=== PATIENT | male | born 1980 | race Caucasian/White ===

== ENCOUNTER 2017-03-18 14:07 | Inpatient (IN) | payer OTHER ==
[~2017-03-18] VITALS: Ht 177.8 cm; Wt 133.0 kg
[2017-03-19] MEDS ORDERED: HYDR-3580 PO (10:54)
[2017-03-19] MEDS ORDERED: CLON1 PO (16:04)
[2017-03-26] VITALS (10 sets, daily range): BP systolic 102–150; BP diastolic 57–86; PULSE 50–92; RESP 14–20; TEMP 97.6–98.8; O2SAT 95–100
[2017-03-26] MEDS ORDERED: INSULIN HUMAN REGULAR 1,000 UNITS/10 ML VIAL SQ PRN (12:00)
[2017-03-26] MEDS ORDERED: CHLORHEXIDINE GLUCONATE 4% SOLN 120 ML BTL TOPICAL SCH (12:00)
[2017-03-26] MEDS ORDERED: VECURONIUM BROMIDE 10 MG VIAL IV ONE (12:00)
[2017-03-26] MEDS ORDERED: PROPOFOL 200 MG/20 ML AMP IV ONE (12:00)
[2017-03-26] MEDS ORDERED: POVIDONE IODINE 5% (ANTISEPSIS KIT) 4 APPLICATIONS EACH NARE PRN (12:00)
[2017-03-26] MEDS ORDERED: HYDROCORTISONE SOD SUCCINATE 100 MG VIAL IV ONE (12:00)
[2017-03-26] MEDS ORDERED: ceFAZolin 2 GM PREMIX 50 ML IV SCH (12:00)
[2017-03-26] MEDS ORDERED: CHLORHEXIDINE GLUCONATE 2 % 1 PACK (2 CLOTHS) TOPICAL PRN (12:00)
[2017-03-26] MEDS ORDERED: METOPROLOL TARTRATE 25 MG TAB PO PRN (12:00)
[2017-03-26] MEDS ORDERED: SODIUM CHLORID 0.9% 500 ML IV PRN (12:00)
[2017-03-26] MEDS ORDERED: PHENYLEPH/NS 1000 MCG/10 ML SYR IV ONE (12:00)
[2017-03-26] MEDS ORDERED: diphenhydrAMINE HCL 50 MG/ML VIAL IV ONE (12:00)
[2017-03-26] MEDS ORDERED: VANCOMYCIN 1000 MG/NS 250 ML (for <70 kg) IV SCH ×2 (12:00)
[2017-03-26] MEDS ORDERED: LACTATED RINGER'S 1000 ML IV PRN (12:00)
[2017-03-26] MEDS ORDERED: BUPIVACAINE/EPINEPHRINE 0.25% PF 30 ML VIAL ONE (12:08)
[2017-03-26] MEDS ORDERED: GENTAMICIN SULFATE 80 MG/2 ML VIAL ONE ×2 (12:08)
[2017-03-26] MEDS ORDERED: FAMOTIDINE 20 MG/2 ML VIAL ONE (13:57)
[2017-03-26] MEDS ORDERED: MIDAZOLAM HCL 2 MG/2 ML VIAL ONE ×2 (13:57→16:28)
[2017-03-26] MEDS ORDERED: RESP: ALBUTEROL CONC 2.5 MG/0.5 ML NEB ONE (14:51)
[2017-03-26] MEDS ORDERED: HYDROCORTISONE SOD SUCCINATE 100 MG VIAL ONE (15:08)
[2017-03-26] MEDS ORDERED: diphenhydrAMINE HCL 50 MG/ML VIAL ONE (15:08)
[2017-03-26] MEDS ORDERED: PROPOFOL 1000 MG/100 ML INJ 100 ML ONE ×2 (15:47→16:29)
--- NOTE | 2017-03-26 16:11 | RADRPT ---
EXAM DATE/TIME: 03/26/2017 15:32 [facility] COMPARISON: No previous studies available for comparison. INDICATIONS : Evaluate chest post intubation. Respiratory failure and bronchospasm. MEDICAL HISTORY : None. SURGICAL HISTORY : None. ENCOUNTER: Initial ACUITY: 1 day PAIN SCORE: Non-responsive. LOCATION: Bilateral chest FINDINGS: A single AP supine portable view of the chest was obtained and demonstrates an endotracheal tube in p lace with the tip approximately 3 cm above the shana. There is abnormal soft tissue masslike density in both paratracheal regions left greater than right. The aortic knob is not well delineated. There is no distinct perihilar edema and the lung bases are clear with no effusion. The heart size is at th e upper limits of normal. The study is Midinspiratory with crowding of the lung vasculature. CONCLUSION: 1. Intubation. 2. Midinspiratory exam with abnormal soft tissue density in both paratracheal regions which could rep resent adenopathy or other mass. A portion of this could be artifactual secondary to the Midinspirato ry exam. 3. No perihilar edema. The lung bases are clear. The findings were discussed with Dr. Latif by telephone at 1607 hrs. Brian Hamilton MD on March 26, 2017 at 16:04 Board Certified Radiologist. This report was verified electronically.
[2017-03-26] MEDS ORDERED: MISCELLANEOUS NURSING INFORMATION XX SCH (16:15)
[2017-03-26] MEDS ORDERED: CHLORHEXIDINE GLUCONATE 2 % 1 PACK (2 CLOTHS) TOP PRN (16:15)
[2017-03-26] MEDS ORDERED: fentaNYL CITRATE 250 MCG/5 ML AMP ONE ×2 (16:28→16:30)
[2017-03-26] MEDS ORDERED: PHENYLEPHRINE HCL 10 MG/ML VIAL ONE (16:28)
[2017-03-26] MEDS ORDERED: EPINEPHrine HCL (1:10,000) 1 MG/10 ML SYRINGE ONE (16:40)
[2017-03-26] MEDS ORDERED: ATROPINE SULFATE 1 MG/10 ML SYRINGE ONE (16:41)
[2017-03-26] MEDS: PANTOPRAZOLE SODIUM 40 MG VIAL IV SCH (17:00)
[2017-03-26] MEDS ORDERED: IOHEXOL 350 MG/ML 10 ML VIAL (for RAD DIAG) IV ONE (17:08)
--- NOTE | 2017-03-26 17:18 | HHI.HP ---
[facility] Service Critical Care Medicine Primary Care Physician Eddie Ozuna MD Admission Diagnosis Diagnosis: (1) Acute hypoxemic respiratory failure Diagnosis: Principal (2) Bilateral upper lobe infiltrates vs mass Diagnosis: Principal (3) DJD (degenerative joint disease) of cervical spine Diagnosis: Secondary Chief Complaint: Acute respiratory failure Travel History International Travel<30 Days: No Contact w/Intl Traveler <30 Da: No Traveled to Known Affected Are: No History of Present Illness Patient is a 37-year-old male with morbid obesity, tobacco abuse who was brought to the OR for elective ACDF for cervical DJD. Dr. Hanson was the surgeon. Patient was intubated with a GlideScope without difficulty per Dr. Latif. Postintubation, patient had acute wheezing bilaterally with desaturation requiring 100% oxygen. With bronchodilators and ventilatory support, eventually oxygen saturation improved on FiO2 was reduced to 50%. CXR showed bilateral paratracheal mass vs lymphadenopathy vs infiltrate on my review. According to Dr. Latif, intubation was easy with GlideScope, and there was no evidence of aspiration. Planned surgery was cancelled and [facility] was consulted for acute hypoxemic respiratory failure. I evaluated the patient in PACU, he was intubated, heavily sedated and still under NM blockade. I have ordered a STAT CT pulmonary angiogram, to rule out PE and evaluate the mass. Patient will be moved to the ICU after the CT chest. Empiric Zosyn and vancomycin and Levaquin to cover for pneumonia and aspiration. Review of Systems ROS Limitations: Intubated Past Family Social History Allergies: Coded Allergies: Toradol (Verified Allergy, Severe, 03/26/17) PT STATES HE IS NOT ALLERGIC TO TORADOL Past Medical History Cervical DJD tobacco abuse Past Surgical History Unable to obtain Reported Medications Klonopin 1 mg by mouth daily at bedtime Hydrocodone/Tylenol when necessary Active Ordered Medications Reviewed Family History Unable to obtain Social History Tobacco abuse per Dr. Latif Physical Exam Vital Signs Vital Signs Date Time Temp Pulse Resp B/P Pulse Ox O2 Delivery O2 Flow Rate FiO2 03/26/17 16:00 98 60 03/26/17 12:28 98.8 92 20 150/86 95 Physical Exam GENERAL: 37-year-old obese female who is intubated sedated and paralyzed SKIN: Warm and dry. HEAD: Atraumatic. Normocephalic. EYES: Pupils equal and round. ENT: No nasal bleeding or discharge. Mucous membranes pink and moist. ETT 7.5 NECK: Trachea midline. No JVD. CARDIOVASCULAR: Regular rate and rhythm. No murmur appreciated. RESPIRATORY: Air entry equal bilaterally with coarse rhonchi and wheezing anterior anterior right chest and left upper chest GASTROINTESTINAL: Abdomen soft, non-tender, nondistended. Hepatic and splenic margins not palpable. MUSCULOSKELETAL: No obvious deformities. No clubbing. NEUROLOGICAL: Intubated sedated neuromuscularly paralyzed limiting exam Laboratory Pending Imaging CT pulmonary angiogram-Bilateral dense consolidation upper lobes Assessment and Plan Assessment and Plan NEURO: Cervical DJD -Propofol and fentanyl for sedation and ventilator synchrony -Daily sedation medication starting in 24 hours -Planned ACDF cancelled for now RESP: Acute hypoxemic respiratory failure Bilateral upper lobe consolidation -PRVC mode -DuoNeb every 4 hours and when necessary -Broad-spectrum antibiotics to cover for aspiration -May need bronchoscopy CV: Hypotension secondary to sedation -Normal saline IV fluids 2L bolus and 84 ml per hour. -Currently on [id number] to DC keeping map above 65 GI: -NPO. IV Protonix : -Monitor renal function closely. Laura catheter. ID: Bilateral upper lobe infiltrates Community-acquired pneumonia versus aspiration -Blood urine and sputum culture -Empiric treatment with vancomycin, Zosyn and Levaquin HEME: -Monitor CBC, CMP ENDO: -Electrolyte replacement protocol PROPH: -Bilateral lower extremity SCDs. Lovenox 40 mg sq daily. IV Protonix LINES: -Utilize peripheral IVs, central line if needed CC time 55 min Code Status Full Discussed Condition With Beata Latif and Manjeet Guerrero MD Mar 26, 2017 17:18
--- NOTE | 2017-03-26 17:27 | RADRPT ---
EXAM DATE/TIME: 03/26/2017 17:00 [facility] COMPARISON: CHEST SINGLE AP, March 26, 2017, 15:32. INDICATIONS : Possible bronchospasm during intubation. Abnormal chest x-ray with masslike opacities in the medial u pper lobes. IV CONTRAST: 75 cc Omnipaque 350 (iohexol) IV RADIATION DOSE: 28.57 CTDIvol (mGy) MEDICAL HISTORY : Sleep apnea. SURGICAL HISTORY : C-spine surgery ENCOUNTER: Initial ACUITY: 1 day PAIN SCALE: Non-responsive LOCATION: Bilateral chest TECHNIQUE: Volumetric scanning of the chest was performed using a pulmonary embolism protocol MIP images were re constructed. Using automated exposure control and adjustment of the mA and/or kV according to patien t size, radiation dose was kept as low as reasonably achievable to obtain optimal diagnostic quality images. FINDINGS: PULMONARY ARTERIES: No filling defects are seen in the pulmonary arteries through the segmental level. LUNGS: There are areas of dense consolidation in the posterior right upper lobe and left upper lobe as well as areas of more streaky consolidation in the perihilar regions. PLEURAE: There is minimal pleural fluid. MEDIASTINUM: There is good visualization of the great vessels of the middle mediastinum. No evidence of mediastin al or hilar adenopathy/mass. An endotracheal tube is present with the tip above the shana. MUSCULOSKELETAL: Within normal limits for patient age. MISCELLANEOUS: The visualized upper abdominal organs demonstrate no acute abnormality. CONCLUSION: 1. No evidence of pulmonary embolism. 2. Areas of dense consolidation in the upper lobes right greater than left which may be infectious or inflammatory. 3. No evidence of adenopathy or mass. Brian Hamilton MD on March 26, 2017 at 17:19 Board Certified Radiologist. This report was verified electronically.
[2017-03-26] MEDS ORDERED: Vancomycin Consult Pharmacy 1 EA OTHER SCH (17:30)
[2017-03-26] MEDS ORDERED: SODIUM CHLOR 0.9% 1000 ML INJ 1,000 ML IV ONE ×2 (17:30)
[2017-03-26] MEDS ORDERED: LEVOFLOXACIN 750 MG PREMIX INJ 150 ML IV SCH (18:00)
[2017-03-26 19:03] LABS: AUTOMATED NEUTROPHIL # 13.2 TH/MM3 (1.8-7.7); BASOPHIL % 0.2 % (0.0-2.0); EOSINOPHIL % 0.2 % (0.0-4.0); HEMATOCRIT 48.1 % (39.0-51.0); HEMO FLAGS DIFF FINAL; LYMPH % 8.7 % (9.0-44.0); LYMPHOCYTE # 1.3 TH/MM3 (1.0-4.8); MEAN CELL VOLUME 89.2 FL (80.0-100.0); MEAN CORPUSCULAR HEMOGLOBIN 28.5 PG (27.0-34.0); MEAN CORPUSCULAR HGB CONC 31.9 % (32.0-36.0); MONO % 5.2 % (0.0-8.0); NEUT % 85.7 % (16.0-70.0); PLATELET COUNT 344 TH/MM3 (150-450); RED BLOOD COUNT 5.39 MIL/MM3 (4.50-5.90); RED CELL DISTRIBUTION WIDTH 14.2 % (11.6-17.2); WHITE BLOOD COUNT 15.4 TH/MM3 (4.0-11.0)
[2017-03-26 19:27] LABS: ANION GAP 8 MEQ/L (5-15); AST (GOT) 25 U/L (15-37); BICARBONATE 24.1 MEQ/L (21.0-32.0); BLOOD UREA NITROGEN 12 MG/DL (7-18); CHLORIDE 106 MEQ/L (98-107); GLOMERULAR FILTRATION RATE 96 ML/MIN (>89); MAGNESIUM 2.1 MG/DL (1.5-2.5); POTASSIUM 4.7 MEQ/L (3.5-5.1); SODIUM (NA) 138 MEQ/L (136-145)
[2017-03-26 19:31] LABS: ALKALINE PHOSPHATASE 47 U/L (45-117); ALT (GPT) 50 U/L (12-78); TOTAL BILIRUBIN ADULT 0.4 MG/DL (0.2-1.0)
[2017-03-26] MEDS: RESP: ALBUTEROL 2.5 MG/IPRATROPIUM 0.5 MG NEB (SCH) INH ×2 (20:00→23:41)
[2017-03-26] MEDS: PIPERACIL-TAZO 4.5 GM PREMIX 100 ML IV SCH (20:04)
[2017-03-26] MEDS: SODIUM CHLORIDE 0.9% FLUSH 10 ML FLUSH IV FLUSH SCH (21:00)
[2017-03-26] MEDS: PROPOFOL 1000 MG/100 ML INJ 100 ML IV SCH (22:28)
[2017-03-26] MEDS: VANCOMYCIN INJ 1,700 MG in SODIUM CHLORID 0.9% 500 ML INJ 500 ML IV SCH (22:28)
[2017-03-27] VITALS (16 sets, daily range): BP systolic 95–131; BP diastolic 55–76; PULSE 50–91; RESP 14–17; TEMP 97.6–99.3; O2SAT 95–100
[2017-03-27] MEDS: PROPOFOL 1000 MG/100 ML INJ 100 ML IV SCH ×5 (00:34→21:47)
[2017-03-27] MEDS ORDERED: TERBUTALINE INJ 1 MG/ML AMP SQ PRN (01:00)
[2017-03-27] MEDS: PHENYLEPHRINE 40 MG/D5W 496 ML ADMIX IV SCH ×4 (01:44→18:59)
[2017-03-27] MEDS: PIPERACIL-TAZO 4.5 GM PREMIX 100 ML IV SCH ×5 (01:53→17:22)
[2017-03-27] MEDS: RESP: ALBUTEROL 2.5 MG/IPRATROPIUM 0.5 MG NEB (SCH) INH ×6 (03:17→23:55)
[2017-03-27] MEDS: SODIUM CHLOR 0.9% 1000 ML INJ 1,000 ML IV SCH ×2 (03:46→12:02)
--- NOTE | 2017-03-27 05:06 | RADRPT ---
EXAM DATE/TIME: 03/27/2017 03:03 [facility] COMPARISON: CT PULMONARY ANGIOGRAM, March 26, 2017, 17:00. CHEST SINGLE AP, March 26, 2017, 15:32. INDICATIONS : Shortness of breath. MEDICAL HISTORY : Sleep apnea. SURGICAL HISTORY : None. ENCOUNTER: Subsequent ACUITY: 2 days PAIN SCORE: Non-responsive. LOCATION: Bilateral chest FINDINGS: Right greater the left upper lobe consolidation again noted not significantly changed. No large effus ion seen. No evidence of pneumothorax. Heart size stable, within normal limits. Endotracheal tube tip is about 4 cm above the shana. Nasogastric tube courses into the stomach. CONCLUSION: No significant change. Bilateral upper lobe pneumonia again noted. Jaxon Vargas MD on March 27, 2017 at 5:03 Board Certified Radiologist. This report was verified electronically.
[2017-03-27 05:22] LABS: AUTOMATED NEUTROPHIL # 11.2 TH/MM3 (1.8-7.7); BASOPHIL # 0.1 TH/MM3 (0-0.2); BASOPHIL % 0.6 % (0.0-2.0); EOSINOPHIL # 0.2 TH/MM3 (0-0.4); EOSINOPHIL % 1.3 % (0.0-4.0); HEMATOCRIT 45.2 % (39.0-51.0); HEMO FLAGS DIFF FINAL; LYMPH % 15.7 % (9.0-44.0); LYMPHOCYTE # 2.5 TH/MM3 (1.0-4.8); MEAN CELL VOLUME 88.5 FL (80.0-100.0); MEAN CORPUSCULAR HEMOGLOBIN 29.5 PG (27.0-34.0); MEAN CORPUSCULAR HGB CONC 33.3 % (32.0-36.0); MONO % 11.2 % (0.0-8.0); NEUT % 71.2 % (16.0-70.0); PLATELET COUNT 289 TH/MM3 (150-450); RED BLOOD COUNT 5.11 MIL/MM3 (4.50-5.90); RED CELL DISTRIBUTION WIDTH 14.4 % (11.6-17.2); WHITE BLOOD COUNT 15.8 TH/MM3 (4.0-11.0)
[2017-03-27 05:43] LABS: ALT (GPT) 46 U/L (12-78); ANION GAP 6 MEQ/L (5-15); AST (GOT) 36 U/L (15-37); BICARBONATE 27.2 MEQ/L (21.0-32.0); BLOOD UREA NITROGEN 9 MG/DL (7-18); CHLORIDE 108 MEQ/L (98-107); GLOMERULAR FILTRATION RATE 72 ML/MIN (>89); MAGNESIUM 2.1 MG/DL (1.5-2.5); POTASSIUM 4.5 MEQ/L (3.5-5.1); SODIUM (NA) 141 MEQ/L (136-145)
[2017-03-27 05:45] LABS: ALKALINE PHOSPHATASE 41 U/L (45-117); TOTAL BILIRUBIN ADULT 0.4 MG/DL (0.2-1.0)
[2017-03-27] MEDS: VANCOMYCIN INJ 1,700 MG in SODIUM CHLORID 0.9% 500 ML INJ 500 ML IV SCH ×2 (05:48→12:02)
--- NOTE | 2017-03-27 07:06 | PD.ORT.PN ---
Subjective Subjective Remarks pt intubated but alert and oriented critical care physician, nurse and by bedside Objective Vitals Vital Signs Date Time Temp Pulse Resp B/P Pulse Ox O2 Delivery O2 Flow Rate FiO2 03/27/17 04:00 98.3 75 17 131/63 100 03/27/17 04:00 35 03/27/17 03:18 100 35 03/27/17 00:00 40 03/27/17 00:00 97.6 50 14 104/55 100 03/26/17 23:45 100 40 03/26/17 23:00 50 03/26/17 20:24 100 45 03/26/17 20:00 45 03/26/17 20:00 58 16 109/63 100 03/26/17 19:00 45 Mechanical Ventilator 03/26/17 19:00 97.8 58 14 102/57 100 03/26/17 18:00 97.6 65 14 120/70 100 03/26/17 17:31 99 50 03/26/17 17:22 100 100 03/26/17 17:00 97.4 66 14 121/58 100 Mechanical Ventilator 80 03/26/17 16:45 73 14 110/55 100 Mechanical Ventilator 80 03/26/17 16:30 83 14 100/54 100 Mechanical Ventilator 80 03/26/17 16:15 83 14 107/59 100 Mechanical Ventilator 100 03/26/17 16:00 97.4 86 14 91/54 100 Mechanical Ventilator 100 03/26/17 16:00 98 60 03/26/17 12:28 98.8 92 20 150/86 95 I/O 03/26/17 03/26/17 03/26/17 03/27/17 03/27/17 03/27/17 07:00 15:00 23:00 07:00 15:00 23:00 Intake Total 3009 ml 1674 ml Output Total 1450 ml 1875 ml Balance 1559 ml -201 ml Intake IV Total 1809 ml 1674 ml Other 1200 ml Output Urine Total 1450 ml 1875 ml # Bowel Movements 0 0 Result Diagram: 03/27/17 0451 03/27/17 0451 Imaging Last 24 hours Impressions Chest X-Ray 03/27/17 0000 Signed Impressions: Service Date/Time: Monday, March 27, 2017 03:03 - CONCLUSION: No significant change. Bilateral upper lobe pneumonia again noted. Jaxon Vargas MD Objective Remarks pt intubated alert and oriented Assessment & Plan Assessment and Plan at time of intubation for elective ACDF yesterday, patient developed resp distress and surgery was aborted chest x-ray was concerning for mass, CTA showed no evidence of PE or mass, inflammatory vs infectious cause critical care physician going to perform bronchoscopy at 10 am continue pulm/medical care Nancy Adler Mar 27, 2017 07:06
[2017-03-27] MEDS ORDERED: ROCURONIUM INJ 50 MG/5 ML VIAL IV ONE (07:15)
[2017-03-27] MEDS ORDERED: MIDAZOLAM HCL 5 MG/5 ML VIAL IV PUSH ONE (07:15)
--- NOTE | 2017-03-27 07:16 | HHI.CCPN ---
Subjective Remarks/Hospital Course Patient is a 37-year-old male with morbid obesity, tobacco abuse who was brought to the OR for elective ACDF for cervical DJD. Dr. Hanson was the surgeon. Patient was intubated with a GlideScope without difficulty per Dr. Latif. Postintubation, patient had acute wheezing bilaterally with desaturation requiring 100% oxygen. With bronchodilators and ventilatory support, eventually oxygen saturation improved on FiO2 was reduced to 50%. CXR showed bilateral paratracheal mass vs lymphadenopathy vs infiltrate on my review. According to Dr. Latif, intubation was easy with GlideScope, and there was no evidence of aspiration. Planned surgery was cancelled and [facility] was consulted for acute hypoxemic respiratory failure. I evaluated the patient in PACU, he was intubated, heavily sedated and still under NM blockade. I have ordered a STAT CT pulmonary angiogram, to rule out PE and evaluate the mass. Patient will be moved to the ICU after the CT chest. Empiric Zosyn and vancomycin and Levaquin to cover for pneumonia and aspiration. SUBJ: 03/27/18: Remains intubated sedated. Wakes up easily. CXR persistent bilateral infiltrate. Sputum pending Objective Vital Signs Date Time Temp Pulse Resp B/P Pulse Ox O2 Delivery O2 Flow Rate FiO2 03/27/17 04:00 98.3 75 17 131/63 100 03/27/17 04:00 35 03/26/17 19:00 Mechanical Ventilator Intake and Output 03/26/17 03/26/17 03/27/17 08:00 16:00 00:00 Intake Total 1200 ml 1809 ml Output Total 300 ml 1150 ml Balance 900 ml 659 ml Result Diagram: 03/27/17 0451 03/27/[address] pulmonary angiogram-Bilateral dense consolidation upper lobes Objective Remarks GENERAL: 37-year-old obese female who is intubated sedated SKIN: Warm and dry. HEAD: Atraumatic. Normocephalic. EYES: Pupils equal and round. ENT: No nasal bleeding or discharge. Mucous membranes pink and moist. ETT 7.5 NECK: Trachea midline. No JVD. CARDIOVASCULAR: Regular rate and rhythm. No murmur appreciated. RESPIRATORY: Air entry equal bilaterally with coarse rhonchi and wheezing anterior anterior right chest and left upper chest GASTROINTESTINAL: Abdomen soft, non-tender, nondistended. Hepatic and splenic margins not palpable. MUSCULOSKELETAL: No obvious deformities. No clubbing. NEUROLOGICAL: Intubated sedated. Wakes up easily follows commands. No FND Urinary Catheter: Yes Assessment to: Continue A/P Assessment and Plan NEURO: Cervical DJD -Propofol and fentanyl for sedation and ventilator synchrony -Daily sedation medication starting in 24 hours -ACDF cancelled for now per Dr. Hanson RESP: Acute hypoxemic respiratory failure Bilateral upper lobe consolidation -PRVC mode -DuoNeb every 4 hours and when necessary -Broad-spectrum antibiotics to cover for aspiration -Bronchoscopy today due to persistent bilateral infiltrates -Possible extubation after bronch CV: Hypotension secondary to sedation -Normal saline IV fluids 2L bolus and 84 ml per hour. -Currently on [id number] to DC keeping map above 65 GI: -NPO. IV Protonix : -Monitor renal function closely. Laura catheter. ID: Bilateral upper lobe infiltrates Community-acquired pneumonia versus aspiration -Blood urine and sputum culture -Empiric treatment with vancomycin, Zosyn and Levaquin HEME: -Monitor CBC, CMP ENDO: -Electrolyte replacement protocol PROPH: -Bilateral lower extremity SCDs. Lovenox 40 mg sq daily. IV Protonix LINES: -Utilize peripheral IVs, central line if needed CC time 35 min Manjeet Coates MD Mar 27, 2017 07:16
[2017-03-27] MEDS: SODIUM CHLORIDE 0.9% FLUSH 10 ML FLUSH IV FLUSH SCH ×2 (07:43→21:00)
[2017-03-27] MEDS: PANTOPRAZOLE SODIUM 40 MG VIAL IV SCH (08:00)
[2017-03-27] MEDS: LEVOFLOXACIN 750 MG PREMIX INJ 150 ML IV SCH (08:00)
[2017-03-27] MEDS: fentaNYL DRIP 250 ML IV SCH (09:19)
[2017-03-27] MEDS ORDERED: methylPREDNISolone SOD SUCC 125 MG/2 ML VIAL ONE (10:35)
[2017-03-27] MEDS ORDERED: diphenhydrAMINE HCL 50 MG/ML VIAL ONE (10:37)
[2017-03-27] MEDS: RESP: ALBUTEROL 2.5 MG/IPRATROPIUM 0.5 MG NEB (PRN) INH (11:09)
--- NOTE | 2017-03-27 11:21 | PD.PROCEDR ---
Procedure Note Procedure Procedure Procedure: Diagnostic Fiberoptic Bronchoscopy Diagnosis/Indication: Bilateral upper lobe infiltrates, rule out mass obstruction Consent: Written Consent was obtained Anesthesia: Continuous Propofol IV and Fentanyl IV, Rocuronium IV 50mg x 1 and Versed 5 mg IV x1 Description of the Procedure: The patient was sedated and mechanically ventilated. The patient was placed on 100% FIO2 and PRVC of ventilation. The fiberoptic bronchoscopy was inserted via 7.5 cuffed Shiley tracheostomy. The trachea, right and left mainstem bronchi, and sub-segmental bronchi were evaluated. The endobronchial anatomy was normal. Thin secretions bilateral UL, other subsegmental bronchi were all essentially clear. BAL samples: Left upper lobe, right upper lobe. A chest x-ray has been ordered. Just after the completion of bronchoscopy patient developed severe bronchospasm , with desaturation to 85%. On PRVC mode patient did not have adequate ventilation and was changed to PCAC and was given [id number] DuoNeb breathing treatments with improvement in bronchospasm. He was also given 125 mg of IV Solu Medrol stat followed by 50 mg of Benadryl. I discussed with anesthesiologist Dr. Latif. He describes bronchospasm and hypoxia following his initial induction on 03/26/17 after receiving IV rocuronium. He describes no problem with a dose of Vecuronium later for ventilator synchrony, without any show bronchospasm. I have entered Rocuronium as an allergy. I personally performed the procedure. Manjeet Coates MD Mar 27, 2017 11:21
[2017-03-27] MEDS: diphenhydrAMINE HCL 50 MG/ML VIAL IV PUSH SCH ×2 (11:45→17:22)
--- NOTE | 2017-03-27 12:31 | RADRPT ---
EXAM DATE/TIME: 03/27/2017 11:25 [facility] COMPARISON: CHEST SINGLE AP, March 27, 2017, 3:03. INDICATIONS : Post bronchoscopy. MEDICAL HISTORY : Sleep apnea. SURGICAL HISTORY : C-spine surgery ENCOUNTER: Subsequent ACUITY: 3 days PAIN SCORE: 0/10 LOCATION: Bilateral chest FINDINGS: ET tube and nasogastric tube are in good position. Patchy airspace disease is present in both lungs. Heart is minimally enlarged, pulmonary vascularity is normal. CONCLUSION: 1. Support apparatus in good position. 2. Patchy airspace disease in both lungs, stable in the interval. Chinmay Carlton MD FACR on March 27, 2017 at 12:18 Board Certified Radiologist. This report was verified electronically.
[2017-03-27] MEDS ORDERED: PHARMACY ORDERED LAB ONE ×2 (12:45→23:45)
[2017-03-27] MEDS: methylPREDNISolone SOD SUCC 40 MG/1 ML VIAL IV SCH ×2 (13:46→21:18)
[2017-03-27] MEDS: ENOXAPARIN SODIUM 40 MG/0.4 ML SYRINGE SQ SCH (13:46)
[2017-03-27 17:17] LABS: BRONCHOALVEOLAR LAVAGE RBC 43 /MM3; BRONCHOALVEOLAR LAVAGE WBC 135 /MM3; BRONCHOAVEOLAR EOSINOPHILS 2 %; BRONCHOAVEOLAR HISTIOCYTES 2 %; BRONCHOAVEOLAR LYMPHOCYTES 7 %; BRONCHOAVEOLAR NEUTROPHILS 88 %; LAVAGE TOTAL WBC COUNT 0.7 MILLION (4.7-7.1)
[2017-03-27 19:36] LABS: BRONCHOALVEOLAR LAVAGE RBC 21 /MM3; BRONCHOALVEOLAR LAVAGE WBC 9 /MM3; BRONCHOAVEOLAR LYMPHOCYTES 8 %; BRONCHOAVEOLAR NEUTROPHILS 11 %
[2017-03-28] VITALS (12 sets, daily range): BP systolic 94–141; BP diastolic 55–76; PULSE 52–136; RESP 14–31; TEMP 97.7–98.9; O2SAT 93–98
[2017-03-28] MEDS ORDERED: VANCOMYCIN INJ 2,000 MG in SODIUM CHLORID 0.9% 500 ML INJ 500 ML IV SCH ×2
[2017-03-28] MEDS: CLOTRIMAZOLE 1% CREAM 15 GM TOPICAL SCH ×3 (00:16→22:06)
[2017-03-28] MEDS: diphenhydrAMINE HCL 50 MG/ML VIAL IV PUSH SCH ×2 (00:20→05:18)
[2017-03-28] MEDS: fentaNYL DRIP 250 ML IV SCH (01:03)
[2017-03-28] MEDS: PROPOFOL 1000 MG/100 ML INJ 100 ML IV SCH ×3 (01:03→06:57)
[2017-03-28] MEDS: PIPERACIL-TAZO 4.5 GM PREMIX 100 ML IV SCH ×4 (01:47→19:00)
[2017-03-28] MEDS: SODIUM CHLOR 0.9% 1000 ML INJ 1,000 ML IV SCH (02:37)
[2017-03-28] MEDS: RESP: ALBUTEROL 2.5 MG/IPRATROPIUM 0.5 MG NEB (SCH) INH ×4 (03:58→21:50)
[2017-03-28] MEDS: PHENYLEPHRINE 40 MG/D5W 496 ML ADMIX IV SCH ×2 (04:06)
[2017-03-28] MEDS: methylPREDNISolone SOD SUCC 40 MG/1 ML VIAL IV SCH ×3 (05:17→22:06)
[2017-03-28] MEDS: LEVOFLOXACIN 750 MG PREMIX INJ 150 ML IV SCH (05:18)
[2017-03-28] MEDS ORDERED: FUROSEMIDE 20 MG/2 ML VIAL IV PUSH SCH (06:00)
--- NOTE | 2017-03-28 07:06 | RADRPT ---
EXAM DATE/TIME: 03/28/2017 06:28 [facility] COMPARISON: No previous studies available for comparison. INDICATIONS : Shortness of breath. MEDICAL HISTORY : Sleep apnea SURGICAL HISTORY : None. ENCOUNTER: Subsequent ACUITY: 4 - 6 days PAIN SCORE: 0/10 LOCATION: Bilateral chest FINDINGS: Mild bilateral perihilar and basilar infiltrates are again noted, slightly improved. No large effusio n. No pneumothorax. Endotracheal tube tip is about 5 cm above the shana. Nasogastric tube courses into the stomach. CONCLUSION: Slightly improved bilateral airspace opacities. Jaxon Vargas MD on March 28, 2017 at 7:04 Board Certified Radiologist. This report was verified electronically.
--- NOTE | 2017-03-28 07:08 | PD.ORT.PN ---
Subjective Subjective Remarks pt intubated and sleeping and nurse in room Objective Vitals Vital Signs Date Time Temp Pulse Resp B/P Pulse Ox O2 Delivery O2 Flow Rate FiO2 03/28/17 06:10 40 03/28/17 04:00 97.8 52 14 129/76 98 03/28/17 04:00 40 03/28/17 03:58 98 40 03/28/17 00:00 40 03/28/17 00:00 97.7 100 14 94/55 94 03/27/17 23:56 95 40 03/27/17 23:00 56 03/27/17 20:20 98 40 03/27/17 20:00 40 03/27/17 20:00 98.3 58 14 113/65 98 03/27/17 19:00 98 Mechanical Ventilator 40 03/27/17 16:13 98 40 03/27/17 16:00 45 03/27/17 16:00 98.6 71 14 121/76 99 03/27/17 15:00 69 03/27/17 12:00 98.6 62 14 95/56 98 03/27/17 12:00 45 03/27/17 11:24 100 50 03/27/17 10:25 100 100 03/27/17 08:37 100 35 03/27/17 08:00 99.3 91 14 124/59 100 03/27/17 08:00 45 I/O 03/27/17 03/27/17 03/27/17 03/28/17 03/28/17 03/28/17 07:00 15:00 23:00 07:00 15:00 23:00 Intake Total 1674 ml 1725 ml 2107 ml 1642 ml Output Total 1875 ml 1300 ml 2400 ml 875 ml Balance -201 ml 425 ml -293 ml 767 ml Intake IV Total 1674 ml 1725 ml 2107 ml 1642 ml Output Urine Total 1875 ml 1300 ml 2400 ml 875 ml # Bowel Movements 0 0 0 0 Result Diagram: 03/27/17 0451 03/27/17 0451 Imaging Last 24 hours Impressions Chest X-Ray 03/27/17 0000 Signed Impressions: Service Date/Time: Monday, March 27, 2017 03:03 - CONCLUSION: No significant change. Bilateral upper lobe pneumonia again noted. Jaxon Vargas MD Objective Remarks pt intubated sleeping comfortably Assessment & Plan Assessment and Plan spoke to Dr. Coates, critical care physician, and he plans on extubating patient this AM patient did have resp. distress yesterday after bronchoscope and it was determined patient has allergy to rocunorium continue pulm/medical care await bronchoscope cultures Nancy Adler Mar 28, 2017 07:08
--- NOTE | 2017-03-28 08:18 | HHI.CCPN ---
Subjective Remarks/Hospital Course Patient is a 37-year-old male with morbid obesity, tobacco abuse who was brought to the OR for elective ACDF for cervical DJD. Dr. Hanson was the surgeon. Patient was intubated with a GlideScope without difficulty per Dr. Latif. Postintubation, patient had acute wheezing bilaterally with desaturation requiring 100% oxygen. With bronchodilators and ventilatory support, eventually oxygen saturation improved on FiO2 was reduced to 50%. CXR showed bilateral paratracheal mass vs lymphadenopathy vs infiltrate on my review. According to Dr. Latif, intubation was easy with GlideScope, and there was no evidence of aspiration. Planned surgery was cancelled and [facility] was consulted for acute hypoxemic respiratory failure. I evaluated the patient in PACU, he was intubated, heavily sedated and still under NM blockade. I have ordered a STAT CT pulmonary angiogram, to rule out PE and evaluate the mass. Patient will be moved to the ICU after the CT chest. Empiric Zosyn and vancomycin and Levaquin to cover for pneumonia and aspiration. SUBJ: 03/27/18: Remains intubated sedated. Wakes up easily. CXR persistent bilateral infiltrate. Sputum pending 03/28/17: Bronchoscopy yesterday was essentially unremarkable, but just after the completion of bronchoscopy patient developed severe bronchospasm, with desaturation to 85%. Given [id number] DuoNeb breathing treatments with improvement in bronchospasm. Also received 125 mg of IV Solu Medrol, scheduled Solu Medrol 60 mg every 8 hours, 50 mg of Benadryl IV q6 . I discussed with anesthesiologist Dr. Latif. He describes bronchospasm and hypoxia following his initial induction on 03/26/17 after receiving IV rocuronium. He describes no problem with a dose of Vecuronium later for ventilator synchrony, without any show bronchospasm. I have entered Rocuronium as an allergy. Patient tolerating CPAP trials well today. Good cuff leak. Plan for extubation Objective Vital Signs Date Time Temp Pulse Resp B/P Pulse Ox O2 Delivery O2 Flow Rate FiO2 03/28/17 06:10 40 03/28/17 04:00 97.8 52 14 129/76 98 03/27/17 19:00 Mechanical Ventilator Intake and Output 03/27/17 03/27/17 03/28/17 08:00 16:00 00:00 Intake Total 1674 ml 1725 ml 2107 ml Output Total 1875 ml 1300 ml 2400 ml Balance -201 ml 425 ml -293 ml Result Diagram: 03/27/17 0451 03/27/17 0451 Other Results Microbiology Date/Time Procedure Status Source Growth 03/26/17 18:15 Legionella Antigen - Final Complete Urine Catheterized Urine PRESUMPTIVE NEGATIVE FOR LEGIONELLA P... 03/26/17 18:15 Streptococcus pneumoniae Antigen (M - Final Complete Urine Catheterized Urine PRESUMPTIVE NEGATIVE FOR STREPTOCOCCU... Imaging CT pulmonary angiogram-Bilateral dense consolidation upper lobes Objective Remarks GENERAL: 37-year-old obese female who is intubated sedated. Wakes up recently. Follows Commands SKIN: Warm and dry. HEAD: Atraumatic. Normocephalic. EYES: Pupils equal and round. ENT: No nasal bleeding or discharge. Mucous membranes pink and moist. ETT 7.5 NECK: Trachea midline. No JVD. CARDIOVASCULAR: Regular rate and rhythm. No murmur appreciated. RESPIRATORY: Air entry equal bilaterally, no wheezes or crackles. GASTROINTESTINAL: Abdomen soft, non-tender, nondistended. Hepatic and splenic margins not palpable. MUSCULOSKELETAL: No obvious deformities. No clubbing. NEUROLOGICAL: Intubated sedated. Wakes up easily follows commands. No FND A/P Assessment and Plan NEURO: Cervical DJD -Propofol and fentanyl for sedation and ventilator synchrony -Hold sedation for possible extubation -ACDF cancelled for now per Dr. Hanson RESP: Acute hypoxemic respiratory failure Bilateral upper lobe consolidation Bronchospasm secondary to rocuronium -PRVC mode -DuoNeb every 4 hours and when necessary -Broad-spectrum antibiotics to cover for aspiration -Bronchoscopy 03/27 unremarkable -Developed bronchospasm post procedure probably induced by Rocuronium -Continue IV Solu-Medrol, IV Benadryl CV: Hypotension secondary to sedation -Discontinued IV NS. IV lasix 20 mg x1 GI: -NPO. IV Protonix : -Monitor renal function closely. Laura catheter. ID: Bilateral upper lobe infiltrates Community-acquired pneumonia versus aspiration, GNR in sputum -Blood urine and sputum culture. GNR in sputum -Empiric treatment with Zosyn and Levaquin. DC Vanc HEME: -Monitor CBC, CMP ENDO: -Electrolyte replacement protocol PROPH: -Bilateral lower extremity SCDs. Lovenox 40 mg sq daily. IV Protonix LINES: -Utilize peripheral IVs CC time 35 min Manjeet Coates MD Mar 28, 2017 08:18
[2017-03-28] MEDS ORDERED: LORazepam 2 MG/ML VIAL ONE (09:27)
[2017-03-28] MEDS ORDERED: fentaNYL CITRATE 250 MCG/5 ML AMP IV PUSH ONE (09:45)
[2017-03-28] MEDS ORDERED: clonazePAM 1 MG TAB PO ONE (09:45)
[2017-03-28] MEDS: SODIUM CHLORIDE 0.9% FLUSH 10 ML FLUSH IV FLUSH SCH ×2 (09:48→22:05)
[2017-03-28] MEDS: PANTOPRAZOLE SODIUM 40 MG VIAL IV SCH (09:48)
[2017-03-28] MEDS ORDERED: LORazepam 2 MG/ML VIAL IV ONE (12:15)
[2017-03-28] MEDS ORDERED: METOPROLOL TARTRATE 5 MG/5 ML VIAL IV PUSH PRN (13:15)
[2017-03-28] MEDS ORDERED: LORazepam 2 MG/ML VIAL IV PUSH ONE (13:15)
[2017-03-28] MEDS ORDERED: METOPROLOL TARTRATE 5 MG/5 ML VIAL IV PUSH ONE (13:45)
[2017-03-28] MEDS: ACETAMINOPHEN/HYDROcodone 325 MG/7.5 MG TAB PO PRN ×3 (15:30→22:06)
[2017-03-28] MEDS: ENOXAPARIN SODIUM 40 MG/0.4 ML SYRINGE SQ SCH (15:30)
--- NOTE | 2017-03-28 18:46 | EKG ---
Date Performed: 03/28/2017 Time Performed: 14:05:04 PTAGE: 37 years EKG: Sinus tachycardia. Extensive T wave changes are nonspecific Borderline ECG NO PREVIOUS TRACING Compared to the previous tracing T wave changes present DOCTOR: Poncho Mead Interpretating Date/Time 03/28/2017 18:46:11
[2017-03-28] MEDS: clonazePAM 1 MG TAB PO SCH (22:05)
[2017-03-29] VITALS (9 sets, daily range): BP systolic 111–150; BP diastolic 58–76; PULSE 96–118; RESP 17–26; TEMP 97.6–99; O2SAT 92–99
[2017-03-29] MEDS: PIPERACIL-TAZO 4.5 GM PREMIX 100 ML IV SCH ×4 (00:51→18:37)
[2017-03-29] MEDS: ACETAMINOPHEN/HYDROcodone 325 MG/7.5 MG TAB PO PRN ×6 (00:52→20:48)
[2017-03-29] MEDS: RESP: ALBUTEROL 2.5 MG/IPRATROPIUM 0.5 MG NEB (SCH) INH ×4 (02:02→16:55)
[2017-03-29 04:50] LABS: ANION GAP 7 MEQ/L (5-15); AST (GOT) 37 U/L (15-37); BICARBONATE 28.2 MEQ/L (21.0-32.0); BLOOD UREA NITROGEN 17 MG/DL (7-18); CHLORIDE 106 MEQ/L (98-107); GLOMERULAR FILTRATION RATE 67 ML/MIN (>89); POTASSIUM 3.6 MEQ/L (3.5-5.1); SODIUM (NA) 141 MEQ/L (136-145)
[2017-03-29 04:53] LABS: ALKALINE PHOSPHATASE 63 U/L (45-117); ALT (GPT) 64 U/L (12-78); TOTAL BILIRUBIN ADULT 0.2 MG/DL (0.2-1.0)
[2017-03-29] MEDS: LEVOFLOXACIN 750 MG PREMIX INJ 150 ML IV SCH (05:55)
[2017-03-29] MEDS: methylPREDNISolone SOD SUCC 40 MG/1 ML VIAL IV SCH ×3 (05:55→20:48)
--- NOTE | 2017-03-29 06:03 | RADRPT ---
EXAM DATE/TIME: 03/29/2017 04:35 [facility] COMPARISON: CHEST SINGLE AP, March 28, 2017, 6:28. INDICATIONS : Shortness of breath, possible pulmonary disease. MEDICAL HISTORY : Sleep Apnea SURGICAL HISTORY : None. ENCOUNTER: Subsequent ACUITY: 4 - 6 days PAIN SCORE: 0/10 LOCATION: Bilateral chest FINDINGS: Very mild, patchy basilar predominant air space opacities are again noted, left slightly worse than r ight. No pleural effusion. No pneumothorax. Heart size stable, within normal limits. Patient has been extubated. Nasogastric tube also out. CONCLUSION: Endotracheal tube and nasogastric tube out. Very mild patchy air space opacities persist without sign ificant change. Jaxon Vargas MD on March 29, 2017 at 6:00 Board Certified Radiologist. This report was verified electronically.
--- NOTE | 2017-03-29 08:32 | PD.ORT.PN ---
Subjective Subjective Remarks pt was extubated yesterday complaining of neck pain, headache, sore throat in room Dr. Chung explained at length to patient and his of the respiratory disorder related medication reaction during anaesthesia Objective Vitals Vital Signs Date Time Temp Pulse Resp B/P Pulse Ox O2 Delivery O2 Flow Rate FiO2 03/29/17 04:00 97.6 106 26 143/72 93 03/29/17 00:00 98.2 106 17 126/62 97 03/28/17 23:00 107 03/28/17 21:50 93 21 03/28/17 20:00 98.9 116 26 141/64 93 03/28/17 19:00 95 Room Air 03/28/17 16:30 30 03/28/17 16:00 98.7 128 30 123/60 95 03/28/17 15:00 126 03/28/17 12:00 98.8 136 31 119/59 93 03/28/17 08:48 96 Nasal Cannula 3 I/O 03/28/17 03/28/17 03/28/17 03/29/17 03/29/17 03/29/17 07:00 15:00 23:00 07:00 15:00 23:00 Intake Total 1642 ml 955 ml 628 ml 724 ml Output Total 875 ml 2000 ml 550 ml 475 ml Balance 767 ml -1045 ml 78 ml 249 ml Intake Oral 400 ml 500 ml 480 ml IV Total 1642 ml 555 ml 128 ml 244 ml Output Urine Total 875 ml 2000 ml 550 ml 475 ml # Bowel Movements 0 0 1 2 Result Diagram: 03/27/17 0451 03/29/17 0402 Imaging Last 24 hours Impressions Chest X-Ray 03/27/17 0000 Signed Impressions: Service Date/Time: Monday, March 27, 2017 03:03 - CONCLUSION: No significant change. Bilateral upper lobe pneumonia again noted. Jaxon Vargas MD Objective Remarks pt extubated motor is +5/5 except left wrist dorsiflexion +4.5/5 Assessment & Plan Assessment and Plan transfer to [facility] patient did have resp. distress after bronchoscope and it was determined patient has allergy to rocunorium continue pulm/medical care await bronchoscope cultures- no growth @ 24 hrs Nancy Adler Mar 29, 2017 08:31
[2017-03-29] MEDS: CLOTRIMAZOLE 1% CREAM 15 GM TOPICAL SCH (08:51)
[2017-03-29] MEDS: clonazePAM 1 MG TAB PO SCH ×2 (08:51→20:48)
[2017-03-29] MEDS: SODIUM CHLORIDE 0.9% FLUSH 10 ML FLUSH IV FLUSH SCH (08:52)
--- NOTE | 2017-03-29 09:05 | HHI.PR ---
Subjective Remarks Swamper Notes: Patient is a 37-year-old male with morbid obesity, tobacco abuse who was brought to the OR for elective ACDF for cervical DJD. Dr. Hanson was the surgeon. Patient was intubated with a GlideScope without difficulty per Dr. Latif. Postintubation, patient had acute wheezing bilaterally with desaturation requiring 100% oxygen. With bronchodilators and ventilatory support, eventually oxygen saturation improved on FiO2 was reduced to 50%. CXR showed bilateral paratracheal mass vs lymphadenopathy vs infiltrate on my review. According to Dr. Latif, intubation was easy with GlideScope, and there was no evidence of aspiration. Planned surgery was cancelled and [facility] was consulted for acute hypoxemic respiratory failure. I evaluated the patient in PACU, he was intubated, heavily sedated and still under NM blockade. I have ordered a STAT CT pulmonary angiogram, to rule out PE and evaluate the mass. Patient will be moved to the ICU after the CT chest. Empiric Zosyn and vancomycin and Levaquin to cover for pneumonia and aspiration. SUBJ: 03/27/18: Remains intubated sedated. Wakes up easily. CXR persistent bilateral infiltrate. Sputum pending 03/28/17: Bronchoscopy yesterday was essentially unremarkable, but just after the completion of bronchoscopy patient developed severe bronchospasm, with desaturation to 85%. Given [id number] DuoNeb breathing treatments with improvement in bronchospasm. Also received 125 mg of IV Solu Medrol, scheduled Solu Medrol 60 mg every 8 hours, 50 mg of Benadryl IV q6 . I discussed with anesthesiologist Dr. Latif. He describes bronchospasm and hypoxia following his initial induction on 03/26/17 after receiving IV rocuronium. He describes no problem with a dose of Vecuronium later for ventilator synchrony, without any show bronchospasm. I have entered Rocuronium as an allergy. Patient tolerating CPAP trials well today. Good cuff leak. Plan for extubation Hospitalist Notes: 03/29: Seen in his bedroom in the presence of nurse Miss Cervantes also his present he has Allergy to Rocuronium at this time stable no Nausea, vomit or diarrhea, had Polysomnography and was supposed to be on CPAP, RENATE, and Morbid Obesity, Obesity hypoventilation syndrome. Objective Vital Signs Date Time Temp Pulse Resp B/P Pulse Ox O2 Delivery O2 Flow Rate FiO2 4/30/17 04:00 97.6 106 26 143/72 93 03/29/17 00:00 98.2 106 17 126/62 97 03/28/17 23:00 107 03/28/17 21:50 93 21 03/28/17 20:00 98.9 116 26 141/64 93 03/28/17 19:00 95 Room Air 03/28/17 16:30 30 03/28/17 16:00 98.7 128 30 123/60 95 03/28/17 15:00 126 03/28/17 12:00 98.8 136 31 119/59 93 I/O 03/28/17 03/28/17 03/28/17 03/29/17 03/29/17 03/29/17 07:00 15:00 23:00 07:00 15:00 23:00 Intake Total 1642 ml 955 ml 628 ml 724 ml Output Total 875 ml 2000 ml 550 ml 475 ml Balance 767 ml -1045 ml 78 ml 249 ml Intake Oral 400 ml 500 ml 480 ml IV Total 1642 ml 555 ml 128 ml 244 ml Output Urine Total 875 ml 2000 ml 550 ml 475 ml # Bowel Movements 0 0 1 2 Result Diagram: 03/27/17 0451 03/29/17 0402 Imaging Last Impressions Chest X-Ray 03/29/17 0600 Signed Impressions: Service Date/Time: Wednesday, March 29, 2017 04:35 - CONCLUSION: Endotracheal tube and nasogastric tube out. Very mild patchy air space opacities persist without significant change. Jaxon Vargas MD CT Angiography 03/26/17 0000 Signed Impressions: Service Date/Time: February 17:00 - CONCLUSION: 1. No evidence of pulmonary embolism. 2. Areas of dense consolidation in the upper lobes right greater than left which may be infectious or inflammatory. 3. No evidence of adenopathy or mass. Brian Hamilton MD Procedures Bronchoscopy Endotracheal Intubation cancelled Decompression C5-6 and C6-C7 Other Results Laboratory Tests Test 03/26/17 03/27/17 03/27/17 03/27/17 17:50 04:51 11:00 23:50 Nasal Screen MRSA (PCR) MRSA NOT DETECTED White Blood Count 15.8 TH/MM3 Red Blood Count 5.11 MIL/MM3 Hemoglobin 15.1 GM/DL Hematocrit 45.2 % Mean Corpuscular Volume 88.5 FL Mean Corpuscular Hemoglobin 29.5 PG Mean Corpuscular Hemoglobin 33.3 % Concent Red Cell Distribution Width 14.4 % Platelet Count 289 TH/MM3 Mean Platelet Volume 8.0 FL Neutrophils (%) (Auto) 71.2 % Lymphocytes (%) (Auto) 15.7 % Monocytes (%) (Auto) 11.2 % Eosinophils (%) (Auto) 1.3 % Basophils (%) (Auto) 0.6 % Neutrophils # (Auto) 11.2 TH/MM3 Lymphocytes # (Auto) 2.5 TH/MM3 Monocytes # (Auto) 1.8 TH/MM3 Eosinophils # (Auto) 0.2 TH/MM3 Basophils # (Auto) 0.1 TH/MM3 CBC Comment DIFF FINAL Differential Comment Bronchoalveolar Lavage WBC 9 /MM3 Bronchoalveolar Lavage RBC 21 /MM3 Bronchoalveolar Lavage 11 % Neutrophils Bronchoalveolar Lavage 8 % Lymphocytes Bronchoalveolar Lavage 2 % Eosinophils Bronchoalveolar Lavage 73 % Histiocytes Lavage Fluid Total Volume 5.0 ML Lavage Fluid Total WBC Count 0.0 MILLION Vancomycin Level Trough 11.4 MCG/ML Test 03/29/17 04:02 Sodium Level 141 MEQ/L Potassium Level 3.6 MEQ/L Chloride Level 106 MEQ/L Carbon Dioxide Level 28.2 MEQ/L Anion Gap 7 MEQ/L Blood Urea Nitrogen 17 MG/DL Creatinine 1.21 MG/DL Estimat Glomerular Filtration 67 ML/MIN Rate Random Glucose 149 MG/DL Calcium Level 9.0 MG/DL Magnesium Level 2.0 MG/DL Total Bilirubin 0.2 MG/DL Aspartate Amino Transf 37 U/L (AST/SGOT) Alanine Aminotransferase 64 U/L (ALT/SGPT) Alkaline Phosphatase 63 U/L Total Protein 6.5 GM/DL Albumin 3.1 GM/DL Objective Remarks GENERAL: No acute distress. Morbid obesity. SKIN: Warm and dry. HEAD: Atraumatic. Normocephalic. EYES: Pupils equal and round. ENT: No nasal bleeding or discharge. NECK: Trachea midline. No JVD. CARDIOVASCULAR: Regular rate and rhythm. No murmur appreciated. RESPIRATORY: Air entry equal bilaterally, no wheezes or crackles. GASTROINTESTINAL: Abdomen soft, non-tender, nondistended. MUSCULOSKELETAL: No obvious deformities. No clubbing. NEUROLOGICAL: Alert and Oriented no focal deficits. Medications and IVs Current Medications Medications (Trade) Dose Ordered Sig/Briseyda Route Start Time Stop Time Status Last Admin (Hibiclens 4% Top Soln) 1 applic ONCE TOPICAL 03/26/17 12:00 03/29/17 11:59 (NS Flush) 2 ml UNSCH PRN IV FLUSH 03/26/17 16:15 (NS Flush) 2 ml BID IV FLUSH 03/26/17 21:00 03/28/17 22:05 (Lovenox Inj) 40 mg Q24H SQ 03/27/17 15:00 03/28/17 15:30 Miscellaneous Information 1 Q361D XX 03/26/17 16:15 Chlorhexidine Gluconate 3 pack 3 pack UNSCH PRN TOP 03/26/17 16:15 (Zosyn 4.5 Gm Premix) 100 ml @ 200 mls/hr Q6H IV 03/26/17 19:00 03/29/17 05:56 Terbutaline Sulfate 1 mg 1 mg UNSCH PRN SQ 03/27/17 01:00 (Levaquin 750 Mg Premix Inj) 150 ml @ 100 mls/hr Q24H IV 03/27/17 06:30 03/29/17 05:55 (Lotrimin 1% Cream) 1 applic BID TOPICAL 03/27/17 21:00 03/28/17 22:06 (KlonoPIN) 1 mg Q12HR PO 03/28/17 21:00 03/28/17 22:05 ([place] 7.5-325 Mg) 1 tab Q4H PRN PO 03/28/17 09:45 03/29/17 03:51 (Lopressor Inj) 2.5 mg Q6H PRN IV PUSH 03/28/17 13:15 (SoluMEDROL INJ) 40 mg Q12HR IV 03/29/17 09:00 A/P Assessment and Plan 1. Cervical DJD had Anterior Cervical Discectomy and Fusion cancelled due to Bronchospasm after Anesthesia induction with rocuronium. 2. Acute Hypoxemic Respiratory failure/Bilateral Upper lobe consolidation/ Bronchospasm secondary to rocuronium status post VDRF, broad spectrum antibiotics, Bronchoscopy 03/27 Unremarkable , Solu-Medrol and Benadryl 3. Bilateral Upper lobe infiltrates/CAP versus Aspiration Pneumonia, GNR in sputum following blood and sputum cultures continue Empiric Zosyn, Levaquin, discontinued Vancomycin. Culture negative. 4. Morbid obesity strongly recommended weight loss, diet and exercise as outpatient 5. RENATE will need follow up as outpatient for Polysomnography and CPAP machine. PROPH: -Bilateral lower extremity SCDs. Lovenox 40 mg sq daily. IV Protonix Igor Lane MD Mar 29, 2017 09:05
[2017-03-29] MEDS: ENOXAPARIN SODIUM 40 MG/0.4 ML SYRINGE SQ SCH (14:05)
[2017-03-29] MEDS ORDERED: POTASSIUM CHLORIDE 20 MEQ CONTROLLED RELEASE TAB PO ONE (17:00)
[2017-03-29] MEDS: SODIUM CHLORIDE 0.9% FLUSH 10 ML FLUSH IV FLUSH PRN ×2 (18:37→20:56)
[2017-03-29] MEDS ORDERED: MENTHOL LOZENGE BUCCAL PRN (22:00)
[2017-03-30] VITALS (9 sets, daily range): BP systolic 134–162; BP diastolic 71–92; PULSE 74–109; RESP 18–20; TEMP 96.7–97.9; O2SAT 93–97
[2017-03-30] MEDS: RESP: ALBUTEROL 2.5 MG/IPRATROPIUM 0.5 MG NEB (SCH) INH ×4 (00:04→21:10)
[2017-03-30] MEDS: ACETAMINOPHEN/HYDROcodone 325 MG/7.5 MG TAB PO PRN ×5 (00:08→23:21)
[2017-03-30] MEDS: PIPERACIL-TAZO 4.5 GM PREMIX 100 ML IV SCH ×4 (00:08→20:00)
[2017-03-30] MEDS: SODIUM CHLORIDE 0.9% FLUSH 10 ML FLUSH IV FLUSH SCH ×3 (05:48→21:00)
[2017-03-30] MEDS: LEVOFLOXACIN 750 MG PREMIX INJ 150 ML IV SCH (05:50)
--- NOTE | 2017-03-30 07:22 | PD.ORT.PN ---
Subjective Subjective Remarks C/O sore throat,difficulty swallowing Continued c/o neck pain,arm pain and headache No sob;no chest pain Objective Vitals Vital Signs Date Time Temp Pulse Resp B/P Pulse Ox O2 Delivery O2 Flow Rate FiO2 03/30/17 04:16 96.7 98 20 160/85 95 03/30/17 00:42 97.9 109 20 162/92 93 03/30/17 00:04 94 03/29/17 20:09 97.7 101 21 148/70 99 03/29/17 18:56 Room Air 03/29/17 18:31 98 21 03/29/17 16:00 98.6 106 20 150/70 94 03/29/17 11:48 98.2 105 20 138/76 96 03/29/17 11:46 97 21 03/29/17 10:00 111 03/29/17 10:00 92 Room Air 03/29/17 08:00 98.2 107 26 111/58 92 03/29/17 08:00 118 03/29/17 08:00 92 Room Air I/O 03/29/17 03/29/17 03/29/17 03/30/17 03/30/17 03/30/17 07:00 15:00 23:00 07:00 15:00 23:00 Intake Total 724 ml 720 ml 474 ml Output Total 475 ml Balance 249 ml 720 ml 474 ml Intake Oral 480 ml 720 ml 360 ml IV Total 244 ml 114 ml Output Urine Total 475 ml # Voids 2 1 # Bowel Movements 2 2 0 Result Diagram: 03/27/17 0451 03/29/17 0402 Imaging Last 24 hours Impressions Chest X-Ray 03/27/17 0000 Signed Impressions: Service Date/Time: Monday, March 27, 2017 03:03 - CONCLUSION: No significant change. Bilateral upper lobe pneumonia again noted. Jaxon Vargas MD Objective Remarks pt on 6N with motor is +5/5 except left wrist dorsiflexion +4.5/5 Neg whalen's;neg babinski's bilateral Assessment & Plan Assessment and Plan [facility]; seen with . Answered multiple questions patient did have resp. distress after bronchoscope and it was determined patient has allergy to rocunorium continue pulm/medical care await bronchoscope cultures- + gram neg rods on septum Recomend medical eval of sore throat,difficulty swallowing Physical therapy for assitive ambulation Jose Chung MD March 30, 2017 07:22
[2017-03-30] MEDS: clonazePAM 1 MG TAB PO SCH ×2 (08:01→21:00)
[2017-03-30] MEDS: methylPREDNISolone SOD SUCC 40 MG/1 ML VIAL IV SCH ×2 (08:02→21:00)
[2017-03-30] MEDS: CLOTRIMAZOLE 1% CREAM 15 GM TOPICAL SCH ×2 (09:00→21:00)
--- NOTE | 2017-03-30 09:05 | HHI.PR ---
Subjective Remarks Manager Entry Notes: Patient is a 37-year-old male with morbid obesity, tobacco abuse who was brought to the OR for elective ACDF for cervical DJD. Dr. Hanson was the surgeon. Patient was intubated with a GlideScope without difficulty per Dr. Latif. Postintubation, patient had acute wheezing bilaterally with desaturation requiring 100% oxygen. With bronchodilators and ventilatory support, eventually oxygen saturation improved on FiO2 was reduced to 50%. CXR showed bilateral paratracheal mass vs lymphadenopathy vs infiltrate on my review. According to Dr. Latif, intubation was easy with GlideScope, and there was no evidence of aspiration. Planned surgery was cancelled and [facility] was consulted for acute hypoxemic respiratory failure. I evaluated the patient in PACU, he was intubated, heavily sedated and still under NM blockade. I have ordered a STAT CT pulmonary angiogram, to rule out PE and evaluate the mass. Patient will be moved to the ICU after the CT chest. Empiric Zosyn and vancomycin and Levaquin to cover for pneumonia and aspiration. SUBJ: 03/27/18: Remains intubated sedated. Wakes up easily. CXR persistent bilateral infiltrate. Sputum pending 03/28/17: Bronchoscopy yesterday was essentially unremarkable, but just after the completion of bronchoscopy patient developed severe bronchospasm, with desaturation to 85%. Given [id number] DuoNeb breathing treatments with improvement in bronchospasm. Also received 125 mg of IV Solu Medrol, scheduled Solu Medrol 60 mg every 8 hours, 50 mg of Benadryl IV q6 . I discussed with anesthesiologist Dr. Latif. He describes bronchospasm and hypoxia following his initial induction on 03/26/17 after receiving IV rocuronium. He describes no problem with a dose of Vecuronium later for ventilator synchrony, without any show bronchospasm. I have entered Rocuronium as an allergy. Patient tolerating CPAP trials well today. Good cuff leak. Plan for extubation Hospitalist Notes: 03/29: Has Allergy to Rocuronium at this time stable respiratory reed, had Polysomnography and was supposed to be on CPAP, RENATE, and Morbid Obesity, Obesity hypoventilation syndrome. 03/30: seen in his bedroom in the presence of his , complaint of Pain, has CXR with Mild left basilar scarring or atelectasis, No nausea, vomit or diarrhea. Objective Vital Signs Date Time Temp Pulse Resp B/P Pulse Ox O2 Delivery O2 Flow Rate FiO2 03/30/17 07:53 96.9 88 19 144/79 96 03/30/17 04:16 96.7 98 20 160/85 95 03/30/17 00:42 97.9 109 20 162/92 93 03/30/17 00:04 94 03/29/17 20:09 97.7 101 21 148/70 99 03/29/17 18:56 Room Air 03/29/17 18:31 98 21 03/29/17 16:00 98.6 106 20 150/70 94 03/29/17 11:48 98.2 105 20 138/76 96 03/29/17 11:46 97 21 03/29/17 10:00 111 03/29/17 10:00 92 Room Air I/O 03/29/17 03/29/17 03/29/17 03/30/17 03/30/17 03/30/17 07:00 15:00 23:00 07:00 15:00 23:00 Intake Total 724 ml 720 ml 474 ml 360 ml Output Total 475 ml Balance 249 ml 720 ml 474 ml 360 ml Intake Oral 480 ml 720 ml 360 ml 360 ml IV Total 244 ml 114 ml Output Urine Total 475 ml # Voids 2 1 1 # Bowel Movements 2 2 0 0 Result Diagram: 03/27/17 0451 03/29/17 0402 Imaging Last Impressions Chest X-Ray 03/29/17 0600 Signed Impressions: Service Date/Time: Wednesday, March 29, 2017 04:35 - CONCLUSION: Endotracheal tube and nasogastric tube out. Very mild patchy air space opacities persist without significant change. Jaxon Vargas MD CT Angiography 03/26/17 0000 Signed Impressions: Service Date/Time: February 17:00 - CONCLUSION: 1. No evidence of pulmonary embolism. 2. Areas of dense consolidation in the upper lobes right greater than left which may be infectious or inflammatory. 3. No evidence of adenopathy or mass. Brian Hamilton MD Procedures Bronchoscopy Endotracheal Intubation cancelled Decompression C5-6 and C6-C7 Other Results Laboratory Tests Test 03/26/17 03/27/17 03/27/17 03/27/17 17:50 04:51 11:00 23:50 Nasal Screen MRSA (PCR) MRSA NOT DETECTED White Blood Count 15.8 TH/MM3 Red Blood Count 5.11 MIL/MM3 Hemoglobin 15.1 GM/DL Hematocrit 45.2 % Mean Corpuscular Volume 88.5 FL Mean Corpuscular Hemoglobin 29.5 PG Mean Corpuscular Hemoglobin 33.3 % Concent Red Cell Distribution Width 14.4 % Platelet Count 289 TH/MM3 Mean Platelet Volume 8.0 FL Neutrophils (%) (Auto) 71.2 % Lymphocytes (%) (Auto) 15.7 % Monocytes (%) (Auto) 11.2 % Eosinophils (%) (Auto) 1.3 % Basophils (%) (Auto) 0.6 % Neutrophils # (Auto) 11.2 TH/MM3 Lymphocytes # (Auto) 2.5 TH/MM3 Monocytes # (Auto) 1.8 TH/MM3 Eosinophils # (Auto) 0.2 TH/MM3 Basophils # (Auto) 0.1 TH/MM3 CBC Comment DIFF FINAL Differential Comment Bronchoalveolar Lavage WBC 9 /MM3 Bronchoalveolar Lavage RBC 21 /MM3 Bronchoalveolar Lavage 11 % Neutrophils Bronchoalveolar Lavage 8 % Lymphocytes Bronchoalveolar Lavage 2 % Eosinophils Bronchoalveolar Lavage 73 % Histiocytes Lavage Fluid Total Volume 5.0 ML Lavage Fluid Total WBC Count 0.0 MILLION Vancomycin Level Trough 11.4 MCG/ML Test 03/29/17 04:02 Sodium Level 141 MEQ/L Potassium Level 3.6 MEQ/L Chloride Level 106 MEQ/L Carbon Dioxide Level 28.2 MEQ/L Anion Gap 7 MEQ/L Blood Urea Nitrogen 17 MG/DL Creatinine 1.21 MG/DL Estimat Glomerular Filtration 67 ML/MIN Rate Random Glucose 149 MG/DL Calcium Level 9.0 MG/DL Magnesium Level 2.0 MG/DL Total Bilirubin 0.2 MG/DL Aspartate Amino Transf 37 U/L (AST/SGOT) Alanine Aminotransferase 64 U/L (ALT/SGPT) Alkaline Phosphatase 63 U/L Total Protein 6.5 GM/DL Albumin 3.1 GM/DL Objective Remarks GENERAL: No acute distress. Morbid obesity. SKIN: Warm and dry. HEAD: Atraumatic. Normocephalic. EYES: Pupils equal and round. ENT: No nasal bleeding or discharge. NECK: Trachea midline. No JVD. CARDIOVASCULAR: Regular rate and rhythm. No murmur appreciated. RESPIRATORY: Air entry equal bilaterally, no wheezes or crackles. GASTROINTESTINAL: Abdomen soft, non-tender, nondistended. MUSCULOSKELETAL: No obvious deformities. No clubbing. NEUROLOGICAL: Alert and Oriented no focal deficits. Medications and IVs Current Medications Medications (Trade) Dose Ordered Sig/Briseyda Route Start Time Stop Time Status Last Admin (NS Flush) 2 ml UNSCH PRN IV FLUSH 03/26/17 16:15 03/29/17 20:56 (NS Flush) 2 ml BID IV FLUSH 03/26/17 21:00 03/30/17 08:09 (Lovenox Inj) 40 mg Q24H SQ 03/27/17 15:00 03/28/17 15:30 Miscellaneous Information 1 Q361D XX 03/26/17 16:15 Chlorhexidine Gluconate 3 pack 3 pack UNSCH PRN TOP 03/26/17 16:15 (Zosyn 4.5 Gm Premix) 100 ml @ 200 mls/hr Q6H IV 03/26/17 19:00 03/30/17 05:49 Terbutaline Sulfate 1 mg 1 mg UNSCH PRN SQ 03/27/17 01:00 (Levaquin 750 Mg Premix Inj) 150 ml @ 100 mls/hr Q24H IV 03/27/17 06:30 03/30/17 05:50 (Lotrimin 1% Cream) 1 applic BID TOPICAL 03/27/17 21:00 03/29/17 08:51 (KlonoPIN) 1 mg Q12HR PO 03/28/17 21:00 03/30/17 08:01 ([place] 7.5-325 Mg) 1 tab Q4H PRN PO 03/28/17 09:45 03/29/17 20:48 (Lopressor Inj) 2.5 mg Q6H PRN IV PUSH 03/28/17 13:15 (SoluMEDROL INJ) 40 mg Q12HR IV 03/29/17 09:00 03/30/17 08:02 ([place] 7.5-325 Mg) 2 tab Q6H PRN PO 03/29/17 22:00 03/30/17 05:49 ([place] Nancy) 1 lozenge UNSCH PRN BUCCAL 03/29/17 22:00 03/29/17 22:46 A/P Assessment and Plan 1. Cervical DJD had Anterior Cervical Discectomy and Fusion cancelled due to Bronchospasm after Anesthesia induction with rocuronium. 2. Acute Hypoxemic Respiratory failure/Bilateral Upper lobe consolidation/ Bronchospasm secondary to rocuronium status post VDRF, broad spectrum antibiotics, Bronchoscopy 03/27 Unremarkable , Solu-Medrol and Benadryl continue titration of this medicines and switch to by mouth on discharge. 3. Bilateral Upper lobe infiltrates/CAP versus Aspiration Pneumonia, GNR in sputum following blood and sputum cultures continue Empiric Zosyn, Levaquin, discontinued Vancomycin. Culture negative. will discharge on Levaquin no signs of Pneumonia at this time and no BSI. 4. Morbid obesity strongly recommended weight loss, diet and exercise as outpatient 5. RENATE will need follow up as outpatient for Polysomnography and CPAP machine. PROPH: -Bilateral lower extremity SCDs. Lovenox 40 mg sq daily. IV Protonix Discharge Planning as per Attending Physician. Igor Lane MD March 30, 2017 09:05
--- NOTE | 2017-03-30 09:57 | RADRPT ---
EXAM DATE/TIME: 03/30/2017 09:41 [facility] COMPARISON: CHEST SINGLE AP, March 29, 2017, 4:35. INDICATIONS : Chest pain, short of breath. MEDICAL HISTORY : None. SURGICAL HISTORY : None. ENCOUNTER: Initial ACUITY: 1 day PAIN SCORE: 9/10 LOCATION: Bilateral chest FINDINGS: There is mild linear scarring or atelectasis in the left lung base. Generally the appearance is impro analy. No evidence of effusion. Cardiac contours are grossly stable. CONCLUSION: Mild left base scarring or atelectasis Jaxon Tabor MD on March 30, 2017 at 9:54 Board Certified Radiologist. This report was verified electronically.
[2017-03-30 11:22] LABS: LAVAGE TOTAL WBC COUNT 0.045 MILLION (4.700-7.100)
[2017-03-30 11:23] LABS: BRONCHOAVEOLAR HISTIOCYTES 81 %
[2017-03-30] MEDS: ENOXAPARIN SODIUM 40 MG/0.4 ML SYRINGE SQ SCH (15:35)
[2017-03-30] MEDS: NYSTAT/DIPHENHY/LIDO MOUTHWASH (Adult) 120ML SWISH-SWAL SCH ×2 (18:00→21:00)
[2017-03-31] VITALS (7 sets, daily range): BP systolic 139–167; BP diastolic 73–92; PULSE 79–91; RESP 16–19; TEMP 97–97.7; O2SAT 94–99
[2017-03-31] MEDS: RESP: ALBUTEROL 2.5 MG/IPRATROPIUM 0.5 MG NEB (PRN) INH ×2 (00:36→09:08)
[2017-03-31] MEDS ORDERED: clonazePAM 1 MG TAB PO ONE (02:15)
[2017-03-31] MEDS: PIPERACIL-TAZO 4.5 GM PREMIX 100 ML IV SCH ×3 (02:58→12:34)
[2017-03-31] MEDS: LEVOFLOXACIN 750 MG PREMIX INJ 150 ML IV SCH (06:17)
[2017-03-31] MEDS: ACETAMINOPHEN/HYDROcodone 325 MG/7.5 MG TAB PO PRN ×2 (06:18→12:33)
[2017-03-31] MEDS: RESP: ALBUTEROL 2.5 MG/IPRATROPIUM 0.5 MG NEB (SCH) INH ×2 (06:30→15:46)
--- NOTE | 2017-03-31 07:01 | PD.ORT.PN ---
Subjective Subjective Remarks Patient wants to go home today Continued c/o neck pain,arm pain and headache No sob;no chest pain Objective Vitals Vital Signs Date Time Temp Pulse Resp B/P Pulse Ox O2 Delivery O2 Flow Rate FiO2 03/31/17 06:34 97 21 03/31/17 04:00 97.0 79 18 166/73 94 03/31/17 00:39 96 21 03/31/17 00:00 97.0 91 19 139/89 96 03/30/17 20:00 97.8 74 18 134/90 96 03/30/17 18:43 Room Air 03/30/17 16:00 97.1 97 19 154/83 96 03/30/17 14:55 102 03/30/17 11:55 95 21 03/30/17 11:49 97.1 94 19 151/71 97 03/30/17 07:53 96.9 88 19 144/79 96 I/O 03/30/17 03/30/17 03/30/17 03/31/17 03/31/17 03/31/17 07:00 15:00 23:00 07:00 15:00 23:00 Intake Total 360 ml 960 ml 240 ml 240 ml Balance 360 ml 960 ml 240 ml 240 ml Intake Oral 360 ml 960 ml 240 ml 240 ml # Voids 1 5 1 1 # Bowel Movements 0 1 0 0 Result Diagram: 03/27/17 0451 03/29/17 0402 Imaging Last 24 hours Impressions Chest X-Ray 03/27/17 0000 Signed Impressions: Service Date/Time: Monday, March 27, 2017 03:03 - CONCLUSION: No significant change. Bilateral upper lobe pneumonia again noted. Jaxon Vargas MD Objective Remarks Continued tenderness post cervical spine motor is +5/5 except left wrist dorsiflexion +4.5/5 Neg whalen's;neg babinski's bilateral Assessment & Plan Assessment and Plan Answered multiple questions Ortho stable continue pulm/medical care Physical therapy for assitive ambulation D/C home today;Patient instructed to F/U Dr Ozuna this week for medical care Jose Chung MD March 31, 2017 07:01
[2017-03-31] MEDS: methylPREDNISolone SOD SUCC 40 MG/1 ML VIAL IV SCH (08:55)
[2017-03-31] MEDS: clonazePAM 1 MG TAB PO SCH (08:56)
[2017-03-31] MEDS: SODIUM CHLORIDE 0.9% FLUSH 10 ML FLUSH IV FLUSH SCH (08:59)
[2017-03-31] MEDS: CLOTRIMAZOLE 1% CREAM 15 GM TOPICAL SCH (09:00)
[2017-03-31] MEDS: NYSTAT/DIPHENHY/LIDO MOUTHWASH (Adult) 120ML SWISH-SWAL SCH ×2 (09:00→12:34)
[2017-03-31] MEDS ORDERED: WALKER WHEELS/F1 MIS (09:22)
--- NOTE | 2017-03-31 09:38 | HHI.PR ---
Subjective Remarks Geophysicist Notes: Patient is a 37-year-old male with morbid obesity, tobacco abuse who was brought to the OR for elective ACDF for cervical DJD. Dr. Hanson was the surgeon. Patient was intubated with a GlideScope without difficulty per Dr. Latif. Postintubation, patient had acute wheezing bilaterally with desaturation requiring 100% oxygen. With bronchodilators and ventilatory support, eventually oxygen saturation improved on FiO2 was reduced to 50%. CXR showed bilateral paratracheal mass vs lymphadenopathy vs infiltrate on my review. According to Dr. Latif, intubation was easy with GlideScope, and there was no evidence of aspiration. Planned surgery was cancelled and [facility] was consulted for acute hypoxemic respiratory failure. I evaluated the patient in PACU, he was intubated, heavily sedated and still under NM blockade. I have ordered a STAT CT pulmonary angiogram, to rule out PE and evaluate the mass. Patient will be moved to the ICU after the CT chest. Empiric Zosyn and vancomycin and Levaquin to cover for pneumonia and aspiration. SUBJ: 03/27/18: Remains intubated sedated. Wakes up easily. CXR persistent bilateral infiltrate. Sputum pending 03/28/17: Bronchoscopy yesterday was essentially unremarkable, but just after the completion of bronchoscopy patient developed severe bronchospasm, with desaturation to 85%. Given [id number] DuoNeb breathing treatments with improvement in bronchospasm. Also received 125 mg of IV Solu Medrol, scheduled Solu Medrol 60 mg every 8 hours, 50 mg of Benadryl IV q6 . I discussed with anesthesiologist Dr. Latif. He describes bronchospasm and hypoxia following his initial induction on 03/26/17 after receiving IV rocuronium. He describes no problem with a dose of Vecuronium later for ventilator synchrony, without any show bronchospasm. I have entered Rocuronium as an allergy. Patient tolerating CPAP trials well today. Good cuff leak. Plan for extubation Hospitalist Notes: 03/29: Has Allergy to Rocuronium at this time stable respiratory reed, had Polysomnography and was supposed to be on CPAP, RENATE, and Morbid Obesity, Obesity hypoventilation syndrome. 03/30: seen in his bedroom in the presence of his , complaint of Pain, has CXR with Mild left basilar scarring or atelectasis. 03/31: Stable seen in his bedroom, okay to discharge as per Orthopedic Surgery okay to discharge from Medicine standpoint. he continue in pain, but improved respiratory reed. his present and discussed with nurse miss Reddy. Objective Vital Signs Date Time Temp Pulse Resp B/P Pulse Ox O2 Delivery O2 Flow Rate FiO2 03/31/17 09:10 99 21 03/31/17 08:24 97.1 82 18 167/92 97 03/31/17 06:34 97 21 03/31/17 04:00 97.0 79 18 166/73 94 03/31/17 00:39 96 21 03/31/17 00:00 97.0 91 19 139/89 96 03/30/17 20:00 97.8 74 18 134/90 96 03/30/17 18:43 Room Air 03/30/17 16:00 97.1 97 19 154/83 96 03/30/17 14:55 102 03/30/17 11:55 95 21 03/30/17 11:49 97.1 94 19 151/71 97 I/O 03/30/17 03/30/17 03/30/17 03/31/17 03/31/17 03/31/17 07:00 15:00 23:00 07:00 15:00 23:00 Intake Total 360 ml 960 ml 240 ml 240 ml Balance 360 ml 960 ml 240 ml 240 ml Intake Oral 360 ml 960 ml 240 ml 240 ml # Voids 1 5 1 1 # Bowel Movements 0 1 0 0 Result Diagram: 03/27/17 0451 03/29/17 0402 Imaging Last Impressions Chest X-Ray 03/30/17 0000 Signed Impressions: Service Date/Time: Thursday, March 30, 2017 09:41 - CONCLUSION: Mild left base scarring or atelectasis Jaxon Tabor MD CT Angiography 03/26/17 0000 Signed Impressions: Service Date/Time: February 17:00 - CONCLUSION: 1. No evidence of pulmonary embolism. 2. Areas of dense consolidation in the upper lobes right greater than left which may be infectious or inflammatory. 3. No evidence of adenopathy or mass. Brian Hamilton MD Procedures Bronchoscopy Endotracheal Intubation cancelled Decompression C5-6 and C6-C7 Other Results Laboratory Tests Test 03/27/17 03/27/17 03/27/1730/17 04:51 11:00 23:50 04:02 White Blood Count 15.8 TH/MM3 Red Blood Count 5.11 MIL/MM3 Hemoglobin 15.1 GM/DL Hematocrit 45.2 % Mean Corpuscular Volume 88.5 FL Mean Corpuscular Hemoglobin 29.5 PG Mean Corpuscular Hemoglobin 33.3 % Concent Red Cell Distribution Width 14.4 % Platelet Count 289 TH/MM3 Mean Platelet Volume 8.0 FL Neutrophils (%) (Auto) 71.2 % Lymphocytes (%) (Auto) 15.7 % Monocytes (%) (Auto) 11.2 % Eosinophils (%) (Auto) 1.3 % Basophils (%) (Auto) 0.6 % Neutrophils # (Auto) 11.2 TH/MM3 Lymphocytes # (Auto) 2.5 TH/MM3 Monocytes # (Auto) 1.8 TH/MM3 Eosinophils # (Auto) 0.2 TH/MM3 Basophils # (Auto) 0.1 TH/MM3 CBC Comment DIFF FINAL Differential Comment Bronchoalveolar Lavage WBC 135 /MM3 Bronchoalveolar Lavage RBC 43 /MM3 Bronchoalveolar Lavage 88 % Neutrophils Bronchoalveolar Lavage 7 % Lymphocytes Bronchoalveolar Lavage 2 % Eosinophils Bronchoalveolar Lavage 2 % Histiocytes Lavage Fluid Total Volume 5.0 ML Lavage Fluid Total WBC Count 0.7 MILLION Vancomycin Level Trough 11.4 MCG/ML Sodium Level 141 MEQ/L Potassium Level 3.6 MEQ/L Chloride Level 106 MEQ/L Carbon Dioxide Level 28.2 MEQ/L Anion Gap 7 MEQ/L Blood Urea Nitrogen 17 MG/DL Creatinine 1.21 MG/DL Estimat Glomerular Filtration 67 ML/MIN Rate Random Glucose 149 MG/DL Calcium Level 9.0 MG/DL Magnesium Level 2.0 MG/DL Total Bilirubin 0.2 MG/DL Aspartate Amino Transf 37 U/L (AST/SGOT) Alanine Aminotransferase 64 U/L (ALT/SGPT) Alkaline Phosphatase 63 U/L Total Protein 6.5 GM/DL Albumin 3.1 GM/DL Objective Remarks GENERAL: No acute distress. Morbid obesity. SKIN: Warm and dry. HEAD: Atraumatic. Normocephalic. EYES: Pupils equal and round. ENT: No nasal bleeding or discharge. NECK: Trachea midline. No JVD. CARDIOVASCULAR: Regular rate and rhythm. No murmur appreciated. RESPIRATORY: Air entry equal bilaterally, no wheezes or crackles. GASTROINTESTINAL: Abdomen soft, non-tender, nondistended. MUSCULOSKELETAL: No obvious deformities. No clubbing. NEUROLOGICAL: Alert and Oriented no focal deficits. Medications and IVs Current Medications Medications (Trade) Dose Ordered Sig/Briseyda Route Start Time Stop Time Status Last Admin (NS Flush) 2 ml UNSCH PRN IV FLUSH 03/26/17 16:15 03/29/17 20:56 (NS Flush) 2 ml BID IV FLUSH 03/26/17 21:00 03/31/17 08:59 (Lovenox Inj) 40 mg Q24H SQ 03/27/17 15:00 03/30/17 15:35 Miscellaneous Information 1 Q361D XX 03/26/17 16:15 Chlorhexidine Gluconate 3 pack 3 pack UNSCH PRN TOP 03/26/17 16:15 (Zosyn 4.5 Gm Premix) 100 ml @ 200 mls/hr Q6H IV 03/26/17 19:00 03/31/17 06:17 Terbutaline Sulfate 1 mg 1 mg UNSCH PRN SQ 03/27/17 01:00 (Levaquin 750 Mg Premix Inj) 150 ml @ 100 mls/hr Q24H IV 03/27/17 06:30 03/31/17 06:17 (Lotrimin 1% Cream) 1 applic BID TOPICAL 03/27/17 21:00 03/31/17 09:00 (KlonoPIN) 1 mg Q12HR PO 03/28/17 21:00 03/31/17 08:56 ([place] 7.5-325 Mg) 1 tab Q4H PRN PO 03/28/17 09:45 03/29/17 20:48 (Lopressor Inj) 2.5 mg Q6H PRN IV PUSH 03/28/17 13:15 (SoluMEDROL INJ) 40 mg Q12HR IV 03/29/17 09:00 03/31/17 08:55 ([place] 7.5-325 Mg) 2 tab Q6H PRN PO 03/29/17 22:00 03/31/17 06:18 ([place] Nancy) 1 lozenge UNSCH PRN BUCCAL 03/29/17 22:00 03/29/17 22:46 (Magic Mouthwash Adult Liq) 5 ml QID SWISH-SWAL 03/30/17 18:00 5/2/17 09:00 A/P Assessment and Plan 1. Cervical DJD had Anterior Cervical Discectomy and Fusion cancelled due to Bronchospasm after Anesthesia induction with rocuronium. 2. Acute Hypoxemic Respiratory failure/Bilateral Upper lobe consolidation/ Bronchospasm secondary to rocuronium status post VDRF, broad spectrum antibiotics, Bronchoscopy 03/27 Unremarkable , Solu-Medrol and Benadryl continue titration of this medicines and switch to by mouth on discharge. 3. Bilateral Upper lobe infiltrates/CAP versus Aspiration Pneumonia, GNR in sputum following blood and sputum cultures continue Empiric Zosyn, Levaquin, discontinued Vancomycin. Culture negative. will discharge on Levaquin no signs of Pneumonia at this time and no BSI. 4. Morbid obesity strongly recommended weight loss, diet and exercise as outpatient 5. RENATE will need follow up as outpatient for Polysomnography and CPAP machine. PROPH: -Bilateral lower extremity SCDs. Lovenox 40 mg sq daily. IV Protonix Discussed with Patient and his in the room all questions answered to the best of my abilities. , also nurse miss Reddy. Discharge Planning as per Attending Physician. Igor Lane MD March 31, 2017 09:38
[2017-03-31] MEDS ORDERED: LEVA750T PO (09:44)
[2017-03-31] MEDS ORDERED: SYMB160A INH (09:44)
[2017-03-31] MEDS: ENOXAPARIN SODIUM 40 MG/0.4 ML SYRINGE SQ SCH (15:03)
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
[2017-04-20] MEDS ORDERED: BUPR150CR PO (12:38)
[2017-04-20] MEDS ORDERED: PROT40TA PO (12:39)
[2017-04-20] MEDS ORDERED: BUPR1TAB70 PO (14:53)
== END 2017-03-31 16:55 | disposition home or self-care (01) | DRG 987 ==
LOC: HSDI 03-26 11:35 → N03A 03-26 17:15 → N06A 03-29 11:47
PROVIDERS: ADMIT Orthopaedic Surgery Orthopaedic Surgery of the Spine; ATTEND Orthopaedic Surgery Orthopaedic Surgery of the Spine
PROC: 5A1945Z Respiratory Ventilation, 24-96 Consecutive Hours (ICD-10-PCS; 2017-03-26)
PROC: 0B9G8ZX Drainage of Left Upper Lung Lobe, Via Natural or Artificial Opening Endoscopic, Diagnostic (ICD-10-PCS; principal; 2017-03-27)
PROC: 0B9C8ZX Drainage of Right Upper Lung Lobe, Via Natural or Artificial Opening Endoscopic, Diagnostic (ICD-10-PCS; 2017-03-27)
DX: M47.812 Spondylosis without myelopathy or radiculopathy, cervical region (principal); J96.01 Acute respiratory failure with hypoxia; J18.9 Pneumonia, unspecified organism; Z68.41 Body mass index [BMI] 40.0-44.9, adult; E66.2 Morbid (severe) obesity with alveolar hypoventilation; G43.909 Migraine, unspecified, not intractable, without status migrainosus; F17.210 Nicotine dependence, cigarettes, uncomplicated; I95.2 Hypotension due to drugs; J98.01 Acute bronchospasm; T48.1X5A Adverse effect of skeletal muscle relaxants [neuromuscular blocking agents], initial encounter
CPT/HCPCS: 71010; 71020; 71275; 80053; 80202; 83735; 85025; 87015; 87040; 87070; 87102; 87116; 87184; 87205; 87206; 87449; 87641; 89051; 93005; 94002; 94003; 94640; 94664; 99211; C9113; G0463; J0171; J0461; J1200; J1580; J1650; J1720; J1956; J2060; J2250; J2370; J2543; J2920; J2930; J3010; J3370; J7030; J7040; J7050; J7060; J7120; J7611; Q9967

== ENCOUNTER → 2017-03-19 | Outpatient (CLI) | payer OTHER ==
[~2017-03-19] MED LIST: BUPR150CR PO; BUPR1TAB70 PO; CLON1 PO; HYDR-3580 PO; IBUP800T23 PO; LEVA750T PO; MAGICADU2 SWISH-SWAL; PERC10TA27 PO; PROT40TA PO; SYMB160A INH; WALKER WHEELS/F1 MIS
[2017-03-19 11:50] LABS: AUTOMATED NEUTROPHIL # 7.2 TH/MM3 (1.8-7.7); BASOPHIL # 0.1 TH/MM3 (0-0.2); BASOPHIL % 0.7 % (0.0-2.0); EOSINOPHIL # 0.2 TH/MM3 (0-0.4); EOSINOPHIL % 1.8 % (0.0-4.0); HEMATOCRIT 47.1 % (39.0-51.0); HEMO FLAGS DIFF FINAL; LYMPH % 22.6 % (9.0-44.0); LYMPHOCYTE # 2.5 TH/MM3 (1.0-4.8); MEAN CORPUSCULAR HEMOGLOBIN 30.1 PG (27.0-34.0); MEAN CORPUSCULAR HGB CONC 34.2 % (32.0-36.0); MONO % 8.4 % (0.0-8.0); NEUT % 66.5 % (16.0-70.0); PLATELET COUNT 275 TH/MM3 (150-450); RED BLOOD COUNT 5.36 MIL/MM3 (4.50-5.90); RED CELL DISTRIBUTION WIDTH 14.1 % (11.6-17.2); WHITE BLOOD COUNT 10.9 TH/MM3 (4.0-11.0)
[2017-03-19 12:14] LABS: POTASSIUM 4.1 MEQ/L (3.5-5.1)
--- NOTE | 2017-03-20 18:41 | EKG ---
Date Performed: 03/19/2017 Time Performed: 10:50:16 PTAGE: 37 years EKG: Sinus rhythm NORMAL ECG NO PREVIOUS TRACING DOCTOR: Carlos Garces Interpretating Date/Time 03/20/2017 18:39:53
== END ==
LOC: CPRE 10:32
PROVIDERS: ATTEND Orthopaedic Surgery Orthopaedic Surgery of the Spine
DX: Z01.812 Encounter for preprocedural laboratory examination (principal); Z01.810 Encounter for preprocedural cardiovascular examination; M48.06 Spinal stenosis, lumbar region
CPT/HCPCS: 36415; 80048; 85025; 93005

== ENCOUNTER → 2017-04-20 | Outpatient (CLI) | payer OTHER ==
[2017-04-20 13:34] LABS: AUTOMATED NEUTROPHIL # 4.8 TH/MM3 (1.8-7.7); BASOPHIL # 0.1 TH/MM3 (0-0.2); BASOPHIL % 0.7 % (0.0-2.0); EOSINOPHIL # 0.3 TH/MM3 (0-0.4); EOSINOPHIL % 3.4 % (0.0-4.0); HEMATOCRIT 46.6 % (39.0-51.0); HEMO FLAGS DIFF FINAL; LYMPH % 25.6 % (9.0-44.0); MEAN CELL VOLUME 88.4 FL (80.0-100.0); MEAN CORPUSCULAR HEMOGLOBIN 29.1 PG (27.0-34.0); MEAN CORPUSCULAR HGB CONC 32.9 % (32.0-36.0); MONO % 9.5 % (0.0-8.0); NEUT % 60.8 % (16.0-70.0); PLATELET COUNT 247 TH/MM3 (150-450); RED BLOOD COUNT 5.27 MIL/MM3 (4.50-5.90); WHITE BLOOD COUNT 7.8 TH/MM3 (4.0-11.0)
--- NOTE | 2017-04-20 16:00 | RADRPT ---
EXAM DATE/TIME: 04/20/2017 13:20 [facility] COMPARISON: CHEST PA & LAT, March 30, 2017, 9:41. INDICATIONS : Evaluate for pneumothorax, pneumonia or communicable diseases. Pre-op for cervical spine surgery. MEDICAL HISTORY : None. SURGICAL HISTORY : None. ENCOUNTER: Initial ACUITY: 1 day PAIN SCORE: 0/10 LOCATION: Bilateral chest FINDINGS: PA and lateral views of the chest demonstrate the lungs to be symmetrically aerated without evidence of mass, infiltrate or effusion. The cardiomediastinal contours are unremarkable. Osseous structure s are intact. CONCLUSION: No acute disease. Brian Hamilton MD on April 20, 2017 at 15:58 Board Certified Radiologist. This report was verified electronically.
== END ==
LOC: CPRE 12:17
PROVIDERS: ATTEND Orthopaedic Surgery Orthopaedic Surgery of the Spine
DX: Z01.812 Encounter for preprocedural laboratory examination (principal); M50.20 Other cervical disc displacement, unspecified cervical region
CPT/HCPCS: 36415; 71020; 85025

== ENCOUNTER 2017-04-23 06:40 | Observation (INO) | payer OTHER ==
[~2017-04-23] VITALS: Ht 213.4 cm; Wt 134.0 kg
[~2017-04-23 06:40] MED LIST changes: +BUPIVACAINE/EPINEPHRINE 0.25% 50 ML VIAL ONE; -BUPR150CR PO; +GENTAMICIN SULFATE 80 MG/2 ML VIAL ONE; -IBUP800T23 PO; -LEVA750T PO; -MAGICADU2 SWISH-SWAL; -PERC10TA27 PO; -WALKER WHEELS/F1 MIS
[2017-04-23] MEDS ORDERED: ceFAZolin 2 GM PREMIX 50 ML IV SCH (07:00)
[2017-04-23] MEDS ORDERED: CHLORHEXIDINE GLUCONATE 2 % 1 PACK (2 CLOTHS) TOPICAL PRN (07:00)
[2017-04-23] MEDS ORDERED: POVIDONE IODINE 5% (ANTISEPSIS KIT) 4 APPLICATIONS EACH NARE PRN (07:00)
[2017-04-23] MEDS ORDERED: LACTATED RINGER'S 1000 ML IV PRN (07:00)
[2017-04-23] MEDS ORDERED: METOPROLOL TARTRATE 25 MG TAB PO PRN (07:00)
[2017-04-23] MEDS ORDERED: CHLORHEXIDINE GLUCONATE 4% SOLN 120 ML BTL TOPICAL SCH (07:00)
[2017-04-23] MEDS ORDERED: INSULIN HUMAN REGULAR 1,000 UNITS/10 ML VIAL SQ PRN (07:00)
[2017-04-23] MEDS ORDERED: SODIUM CHLORID 0.9% 500 ML IV PRN (07:00)
[2017-04-23] MEDS ORDERED: VANCOMYCIN 1000 MG/NS 250 ML (for <70 kg) IV SCH ×2 (07:00)
[2017-04-23] MEDS ORDERED: RESP: IPRATROPIUM 0.5 MG/2.5 ML NEB NEB ONE (07:15)
[2017-04-23 07:16] VITALS: BP 148/88; PULSE 76; RESP 20; TEMP 98.3; O2SAT 95
[2017-04-23] MEDS ORDERED: MIDAZOLAM HCL 2 MG/2 ML VIAL ONE (07:54)
[2017-04-23] MEDS ORDERED: methylPREDNISolone SOD SUCC 125 MG/2 ML VIAL ONE (07:54)
[2017-04-23] MEDS ORDERED: KETAMINE HCL 500 MG/5 ML VIAL ONE (08:02)
[2017-04-23] MEDS ORDERED: SUFentanil INJ 250 MCG/5 ML AMP ONE (08:02)
[2017-04-23] MEDS ORDERED: DEXMEDETOMIDINE HCL 200 MCG/2 ML VIAL ONE (08:18)
[2017-04-23] MEDS ORDERED: ACETAMINOPHEN 1000 MG/100 ML VIAL IV ONE (10:51)
[2017-04-23] MEDS ORDERED: PROPOFOL 200 MG/20 ML AMP IV ONE (12:00)
[2017-04-23] MEDS ORDERED: PHENYLEPH/NS 1000 MCG/10 ML SYR IV ONE (12:00)
[2017-04-23] MEDS ORDERED: ACETAMINOPHEN/HYDROcodone 325 MG/7.5 MG TAB PO PRN (12:30)
[2017-04-23] MEDS: SODIUM CHLORIDE 0.9% FLUSH 5 ML FLUSH IVF SCH ×2 (12:30→19:36)
[2017-04-23] MEDS ORDERED: NALOXONE HCL 0.4 MG/ML AMP IV PRN ×2 (12:30)
[2017-04-23] MEDS ORDERED: MORPHINE SULFATE 4 MG/ML INJ IV PUSH PRN (12:30)
[2017-04-23] MEDS ORDERED: ALUMINUM/MAGNESIUM/SIMETH 30 ML CUP PO PRN (12:30)
[2017-04-23] MEDS ORDERED: SODIUM CHLORIDE 0.9% FLUSH 5 ML FLUSH IVF PRN (12:30)
[2017-04-23] MEDS ORDERED: Post-op Orders (for Pharmacy) MISC XX ONE (12:30)
[2017-04-23] MEDS ORDERED: ONDANSETRON HCL 4 MG/2 ML VIAL IV PRN (12:30)
[2017-04-23] MEDS ORDERED: DO NOT ADM ANY ANTICOAGULANT DRUGS PRN (12:37)
[2017-04-23] MEDS: clonazePAM 1 MG TAB PO SCH ×2 (13:00→17:19)
[2017-04-23] MEDS ORDERED: MORPHINE SULFATE 4 MG/ML INJ ONE (13:04)
[2017-04-23] MEDS ORDERED: fentaNYL CITRATE 250 MCG/5 ML AMP ONE (13:04)
[2017-04-23] MEDS ORDERED: *ONDANSETRON 4 MG VIAL PERIprocedural Use ONLY ONE (13:10)
[2017-04-23] MEDS: LACTATED RINGER'S 1000 ML INJ 1,000 ML IV SCH ×2 (13:20→15:15)
[2017-04-23] MEDS: PCA - TOTAL MG MORPHINE DELIVERED PER SHIFT SCH ×2 (14:00→19:36)
[2017-04-23] MEDS ORDERED: *morphine SULFATE 8 MG/ML PERIprocedure ONLY ONE ×2 (14:04→14:24)
[2017-04-23] MEDS ORDERED: *HYDROmorphone PF 1 MG VIAL PERIprocedural Use ONLY ONE (14:34)
--- NOTE | 2017-04-23 15:36 | RADRPT ---
EXAM DATE/TIME: 04/23/2017 11:54 [facility] COMPARISON: No previous studies available for comparison. INDICATIONS : Post-op C5-C6-C7 anterior cervical fusion. MEDICAL HISTORY : None. SURGICAL HISTORY : None. ENCOUNTER: Initial ACUITY: 1 day PAIN SCORE: Non-responsive. LOCATION: neck FINDINGS: 4 spot fluoroscopic images obtained in the operating room during a procedure demonstrate anterior cer vical plate and screws at 3 consecutive levels extending from C5-C7. CONCLUSION: Images demonstrate hardware anteriorly at C5-C7. Jaxon Roberson MD on April 23, 2017 at 15:33 Board Certified Radiologist. This report was verified electronically.
[2017-04-23 16:00] VITALS: BP 124/63; PULSE 75; RESP 18; TEMP 97; O2SAT 96
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
[2017-04-23] MEDS: ACETAMINOPHEN/HYDROcodone 325 MG/7.5 MG TAB PO PRN ×2 (17:24→23:29)
--- NOTE | 2017-04-23 18:16 | PD.OP ---
cc: Jose Chung MD; Chad Chung MD Operative Report Date of Surgery: April 23, 2017 Preoperative Diagnosis: Herniated nucleus pulposus C5 6 and C6 7. Cervical spinal stenosis. Cervical radiculopathy Postoperative Diagnosis: Same Procedure: Anterior cervical discectomy decompression with bilateral foraminotomies, C5 6. Anterior cervical discectomy decompression with bilateral foraminotomy, C6 7. Left anterior iliac crest bone graft Anesthesia: Gen. Surgeon: Chad Chung Victims Advocate Clerk/Specialist(s): SEAN Gallardo Operation and Findings: EBL: 100 cc INDICATIONS: This patient is a 37-year-old male with significant neck and arm pain with weakness. Investigative studies shows evidence of central disc herniation with significant stenosis at C5 6 and C6 7. Despite conservative care the patient painful and symptomatic. He presents for surgical treatment. NOTE: Michelle Gallardo PA-C was present for the entire surgical procedure as my export sales assistant. In my medical opinion her skill and care was necessary for proper management of this patient PROCEDURE: The patient was brought to the operating room and anesthetized in the supine position. This patient was positioned supine on the radiolucent table. All pressure points were protected in the anterior cervical spine and iliac crest was scrubbed with alcohol followed by Hibiclens followed by ChloraPrep. A timeout was done and antibiotics were given within 1 hour time window. Lateral radiographic images were used identifying the proper level. A right anterior incision was made in line with skin creases. The platysma was opened in line with the incision. Deep dissection continued in the interval between the carotid sheath and the esophagus. The longus-coli muscles were lifted on both sides and retractors were positioned allowing good exposure. Lateral radiographic images were used to identify the proper level. [place] style interosseous pins were placed at C5 and C6 allowing exposure to that level. The microscope was rolled into the field. A total discectomy was accomplished and posterior osteophytes were removed. The posterior longitudinal ligament and annulus was taken down. Bilateral foraminotomies were accomplished. The endplates were squared up anticipating later bone grafting. A blunt probe could be placed out each foramen without evidence of nerve root compromise. The C5 pin was placed down to C7. An anterior exposure was accomplished. We performed a total discectomy with excision of the posterior annulus and posterior longitudinal ligament. Bilateral foraminotomies were accomplished. Osteophytes were removed. The endplates were squared up anticipating later bone grafting. A blunt probe could be placed out each foramen without evidence of nerve root compromise. The left iliac crest was approached. A small stab incision was made allowing percutaneous access to the anterior iliac crest. Multiple cores of cancellous bone were harvested and taken to the back table to be used for later bone grafting. The wound was irrigated anesthetized and closed with 4-0 Vicryl followed by Dermabond. The case was turned over to Dr. Jose Chung for fusion and instrumentation per his dictation. FINDINGS: It was evidence of the central disc herniation posterior to the posterior portion of the annulus and underneath the posterior longitudinal ligament both at C5 6 and C6 7. There was significant left sided foraminal stenosis C5 6. The decompression at both levels felt be very satisfactory. No complication was appreciated. NOTE: This surgery was performed in 2 parts. The first part was the neurosurgical decompression performed under the variable power stereo microscope by the undersigned in addition to the bone graft. The second portion of the surgery will be performed by the orthopedic spine component by co -surgeon, Dr. Jose Chung for the anterior fusion with interbody cage and anterior plate. The skill of 2 surgeons was necessary to perform distinct separate procedural services as dictated above and dictated in the following operative note by Dr. Jose Chung. Chad Chung MD April 23, 2017 18:16
[2017-04-23] MEDS: buPROPion HCL 100 MG SUSTAINED RELEASE TAB PO SCH (19:35)
[2017-04-23] MEDS: BUDESONIDE-FORMOTEROL 160/4.5 MCG INHALER INH SCH (19:36)
[2017-04-23] MEDS: RESP: ALBUTEROL 2.5 MG/3 ML NEB (PRN) NEB (19:56)
[2017-04-23 19:57] VITALS: O2SAT 99
[2017-04-23 20:00] VITALS: BP 161/72; PULSE 111; RESP 18; TEMP 97.7; O2SAT 95
[2017-04-23] MEDS ORDERED: ZOLPIDEM TARTRATE 5 MG TAB PO PRN (21:00)
--- NOTE | 2017-04-23 22:03 | MP ---
cc: FILOMENA CHUNG,MARY Barnhart MD (fax for Dr. Ozuna [phone]) DATE OF SURGERY 04/23/17 PREOPERATIVE DIAGNOSIS 1. C5-6 herniated nucleus pulposus, osteophyte disk complex 2. C6-7 herniated nucleus pulposus, osteophyte disk complex 3. Left greater than right cervical radiculitis with upper extremity weakness. POSTOPERATIVE DIAGNOSIS 1. C5-6 herniated nucleus pulposus, osteophyte disk complex 2. C6-7 herniated nucleus pulposus, osteophyte disk complex 3. Left greater than right cervical radiculitis with upper extremity weakness. PROCEDURE C5-6, C6-7 anterior body fusion; C5-6, C6-7 spinet ACC anterior cervical cages; C5-C7 spinet Rauscher anterior spinal instrumentation. SURGEON George Chung MD [employer] Joshua Adler, PAC SPECIMENS None ESTIMATED BLOOD LOSS 150 mL for entire case. COMPLICATIONS None. ANESTHESIA General DRAINS One CONDITION Stable PLAN OF ACTIVITY As per orders. PROCEDURE IN DETAIL Dr. Chad Chung and myself were co-surgeons on this surgical procedure. Dr. Chad Chung performed the neuro decompressive procedure at C5-6 and C6-7. He performed a C5-6, C6-7 anterior cervical diskectomy, anterior decompression using operative microscope and also left anterior iliac crest bone grafting. I was not present for his portion of the procedure and that is well-described in his operative note. As co-surgeon, I performed I performed the orthopedic surgical spinal fusion and spinal instrumentation which is well-described in this operative note. My branch assistant Nancy Adler was present for my portion of the surgical case. She was medically necessary for this portion of the case because of the complexity of the case and to facilitate the performance of the procedure. The ADVERTISING DIRECTOR at the back table was not a skill set for this case, to manipulate the instruments e.g. the multiple different type of soft tissue retractors, trial implants and permanent implants. The endplates at C6-7 were prepared for fusion. The hyaline cartilage endplate was removed using multiple angled curettes and burs. A 7 10x12 ACC cage was placed in the interspace. Under fluoroscopic guidance, anterior iliac crest bone grafting was used for interbody fusion. The endplates at C6-7 were prepared for fusion. The hyaline cartilage endplate using angled curettes and burs. A 6 10x12 ACC cage placed in the interspace. Anterior iliac crest bone graft under fluoroscopic guidance for interbody fusion. A 46 mm spinet Rauscher plate was used for anterior spinal instrumentation. Two packs and one temporary screw were used to temporary fixation. Anterolateral imaging confirmed satisfactory positioning of the plate in both the AP and lateral plane. Two screws were used in vertebral body of C5, C6 and C7. Each of the screws were 14 mm in length, 4.0 mm in diameter fixed angle screws and each screw was initially drilled and a screw head was appropriately locked into plate. Intraoperative fluoroscopy AP and lateral plane confirmed satisfactory position of the bone graft at C5-6, C6-7, satisfactory position of ACC cages at C5-6 and C6-7, satisfactory position of the anterior spinal instrumentation at C5-C7. The wound was irrigated with copious amounts of saline, the wound itself was dry. Surgiflo was used throughout the surgical case in order to provide adequate hemostasis. Wound was closed over a 10-Lao Douglas drain. The wound was closed in multiple layers using 3-0 Vicryl suture. Skin was approximated with running subcuticular 4-0 Vicryl. Dermabond placed over the incision. Sterile dressings were applied. The patient was placed in Spelter cervical orthosis. The patient tolerated the procedure well, arrived to recovery room in stable and satisfactory condition. MD ROBERTO Aquino/ /12:23 PM /9:37 PM
[2017-04-24] VITALS: BP 152/67; PULSE 112; RESP 20; TEMP 97.3; O2SAT 95
[2017-04-24] MEDS: PCA - TOTAL MG MORPHINE DELIVERED PER SHIFT SCH (02:29)
[2017-04-24 04:00] VITALS: BP 146/76; PULSE 92; RESP 20; TEMP 97.3; O2SAT 97
[2017-04-24] MEDS: ACETAMINOPHEN/HYDROcodone 325 MG/7.5 MG TAB PO PRN ×2 (05:07→11:06)
--- NOTE | 2017-04-24 07:10 | PD.ORT.PN ---
Subjective Subjective Remarks pt complains of sore throat states neck and arm pain improved intermittent numbness and tingling involving arms and hands but improved from pre-operatively Objective Vitals Vital Signs Date Time Temp Pulse Resp B/P Pulse Ox O2 Delivery O2 Flow Rate FiO2 04/24/17 04:00 97.3 92 20 146/76 97 04/24/17 00:00 97.3 112 20 152/67 95 04/23/17 20:00 97.7 111 18 161/72 95 04/23/17 19:57 99 Nasal Cannula 2.00 04/23/17 18:24 18 04/23/17 16:00 97.0 75 18 124/63 96 04/23/17 14:45 98.1 79 16 113/60 96 Nasal Cannula 2 04/23/17 14:30 80 12 118/59 96 Nasal Cannula 2 04/23/17 14:15 80 12 118/51 95 Nasal Cannula 2 04/23/17 14:00 79 15 115/53 96 Nasal Cannula 2 04/23/17 13:45 78 16 113/57 99 Simple Mask 5 04/23/17 13:30 76 18 86/54 99 Simple Mask 5 04/23/17 13:15 70 16 88/56 97 Simple Mask 5 04/23/17 13:00 74 16 99/51 97 Simple Mask 5 04/23/17 12:45 77 15 72/33 97 Simple Mask 5 04/23/17 12:42 97.9 79 15 104/42 96 Simple Mask 5 04/23/17 07:16 98.3 76 20 148/88 95 I/O 04/23/17 04/23/17 04/23/17 04/24/17 04/24/17 04/24/17 07:00 15:00 23:00 07:00 15:00 23:00 Intake Total 2000 ml 780 ml 780 ml Output Total 200 ml 830 ml 1105 ml Balance 1800 ml -50 ml -325 ml Intake Oral 780 ml 780 ml IV Total 250 ml Other 1750 ml Output Urine Total 800 ml 1100 ml Drainage Total 30 ml 5 ml Estimated Blood Loss 200 ml # Voids 1 # Bowel Movements 0 0 Objective Remarks seen by Dr. Jose Chung Elim Ira collar in place dressing dry and intact motor is +5/5 to UE Assessment & Plan Assessment and Plan POD # 1 s/p C5-7 ACDF Elim Ira collar x 4 weeks again counseled on importance of smoking cessation Kitzmiller rx in chart discharge home today, orthopedically stable Nancy Adler April 24, 2017 07:10
[2017-04-24 08:00] VITALS: BP 135/83; PULSE 88; RESP 18; TEMP 97.2; O2SAT 98
[2017-04-24] MEDS: BUDESONIDE-FORMOTEROL 160/4.5 MCG INHALER INH SCH (08:30)
[2017-04-24] MEDS: clonazePAM 1 MG TAB PO SCH (08:37)
[2017-04-24] MEDS: SODIUM CHLORIDE 0.9% FLUSH 5 ML FLUSH IVF SCH (08:37)
[2017-04-24] MEDS: buPROPion HCL 100 MG SUSTAINED RELEASE TAB PO SCH (08:37)
[2017-04-24] MEDS: RESP: ALBUTEROL 2.5 MG/3 ML NEB (PRN) NEB (08:55)
[2017-04-24] MEDS ORDERED: PANTOPRAZOLE SOD 40 MG DELAYED RELEASE TAB PO SCH (09:00)
[2017-04-24] MEDS ORDERED: MULTIVITAMINS/MINERALS THERAPEUTIC TAB PO SCH (09:00)
[2017-04-24] MEDS ORDERED: SYMB160A INH (22:36)
[2017-04-24] MEDS ORDERED: IBUP800T23 PO (22:36)
[2017-04-24] MEDS ORDERED: PERC10TA27 PO (22:36)
[2017-04-24] MEDS ORDERED: MAGICADU2 SWISH-SWAL (23:08)
== END 2017-04-24 11:36 | disposition home or self-care (01) ==
LOC: HSDC 06:40 → EDSTATUS 08:30 → HSDI 12:44 → N06A 15:34
PROVIDERS: ADMIT Orthopaedic Surgery Orthopaedic Surgery of the Spine; ATTEND Orthopaedic Surgery Orthopaedic Surgery of the Spine
DX: M50.122 Cervical disc disorder at C5-C6 level with radiculopathy (principal); M50.222 Other cervical disc displacement at C5-C6 level; M47.22 Other spondylosis with radiculopathy, cervical region; S13.4XXD Sprain of ligaments of cervical spine, subsequent encounter; R53.1 Weakness; J02.9 Acute pharyngitis, unspecified; J45.909 Unspecified asthma, uncomplicated
CPT/HCPCS: 00600; 20936; 22551; 22552; 22845; 22853; 72040; 76000; 94150; 94640; 94664; C1713; G0378; J0131; J0690; J1170; J1580; J2250; J2270; J2370; J2405; J2930; J3010; J3370; J7050; J7120; J7613; J7644

== ENCOUNTER 2017-04-24 20:22 | Emergency (ER) | payer OTHER ==
[~2017-04-24 20:22] MED LIST changes: -BUPIVACAINE/EPINEPHRINE 0.25% 50 ML VIAL ONE; -GENTAMICIN SULFATE 80 MG/2 ML VIAL ONE
[2017-04-24 20:25] VITALS: BP 144/98; PULSE 110; RESP 18; TEMP 98.9; O2SAT 97
[2017-04-24 20:42] VITALS: BP 145/86; PULSE 90; RESP 20; O2SAT 98
--- NOTE | 2017-04-24 20:56 | PD ---
HPI Chief Complaint: Chest Pain Time Seen by Provider: 20:48 Travel History International Travel<30 days: No Contact w/Intl Traveler<30days: No Traveled to known affect area: No History of Present Illness HPI The patient is a 37-year-old male that was operated on by Dr. Jose Montiel yesterday for a cervical disc. He was just discharged this morning around 11: 00. The patient developed increasing diffuse chest pain, sharp, positional and pleuritic today. He states it is a 10 over 10 in feels like he was punched in the chest with a hammer. The patient feels a pulsating pressure along with nausea without vomiting. He states he used to smoke one half pack a day but quit several days ago. He denies any fever or hemoptysis. He denies any shortness of breath. PFSH Past Medical History Cancer: No Cardiovascular Problems: No Diminished Hearing: No Endocrine: No Gastrointestinal Disorders: Yes (DIVERTICULITIS, GERD ) Genitourinary: No Hepatitis: No Hiatal Hernia: No Immune Disorder: No Medical other: No Musculoskeletal: Yes (NECK SURGERY 04/23/17) Neurologic: Yes (NUMBNESS L ARM WITH PAIN, HEADACHE PAIN, PAIN IN BOTH LEGS ) Psychiatric: No Reproductive: No Respiratory: Yes (SLEEP APNEA ) Thyroid Disease: No Past Surgical History AICD: No Joint Replacement: No Pacemaker: No Social History Alcohol Use: No Tobacco Use: No Substance Use: No Allergies-Medications (Allergen,Severity, Reaction): Coded Allergies: Rocuronium (Verified Allergy, Severe, 04/24/17) Bronchospasm Toradol (Verified Allergy, Severe, 04/24/17) RASH Reported Meds & Prescriptions Reported Meds & Active Scripts Active Symbicort Inh (Budesonide/Formoterol Fumarate) 160-4.5 Mcg/Act Aero 1 Puff INH Q12HR Reported Bupropion HCl ER 12 HR (Bupropion HCl) 100 Mg Tab 100 Mg PO Q12HR Protonix (Pantoprazole Sodium) 40 Mg Tab 40 Mg PO DAILY Klonopin (Clonazepam) 1 Mg Tab 1 Mg PO TID Hydrocodone-Acetaminophen 7.5-325 mg Tab 1 Tab PO Q4H PRN Review of Systems Except as stated in HPI: all other systems reviewed are Neg Physical Exam Narrative GENERAL: The patient is alert, oriented 3 in moderate to severe distress with his chest pain. His vital signs show pulse rate of 110 and blood pressure 144/ 98 but repeat vital signs show pulse of 90 and blood pressure 145/86. The rest the vital signs are normal. SKIN: Focused skin assessment warm/dry. HEAD: Atraumatic. Normocephalic. EYES: Pupils equal and round. No scleral icterus. No injection or drainage. ENT: No nasal bleeding or discharge. Mucous membranes pink and moist. NECK: Trachea midline. No JVD. CARDIOVASCULAR: Regular rate and rhythm. No murmur appreciated. RESPIRATORY: No accessory muscle use. Clear to auscultation. Breath sounds equal bilaterally. The patient has tenderness diffusely over the entire chest wall. Pressure on the anterior and posterior chest wall can reproduce his pain. GASTROINTESTINAL: Abdomen soft, non-tender, nondistended. Hepatic and splenic margins not palpable. MUSCULOSKELETAL: No obvious deformities. No clubbing. No cyanosis. No edema. NEUROLOGICAL: Awake and alert. No obvious cranial nerve deficits. Motor grossly within normal limits. Normal speech. PSYCHIATRIC: Appropriate mood and affect; insight and judgment normal. Data Data Last Documented VS Vital Signs Date Time Temp Pulse Resp B/P Pulse Ox O2 Delivery O2 Flow Rate FiO2 04/24/17 20:42 90 20 145/86 98 Room Air 04/24/17 20:25 98.9 Orders Electrocardiogram (04/24/17 20:49) Ckmb (Isoenzyme) Profile (04/24/17 20:49) Complete Blood Count With Diff (04/24/17 20:49) Comprehensive Metabolic Panel (04/24/17 20:49) Magnesium (Mg) (04/24/17 20:49) Troponin I (04/24/17 20:49) Ecg Monitoring (04/24/17 20:49) Bilateral Bp Monitoring (04/24/17 20:49) Iv Access Insert/Monitor (04/24/17 20:49) Oximetry (04/24/17 20:49) Oxygen Administration (04/24/17 20:49) Sodium Chloride 0.9% Flush (Ns Flush) (04/24/17 21:00) Chest, Pa & Lat (04/24/17 20:49) CKMB (04/24/17 20:54) CKMB% (04/24/17 20:54) Hydromorphone Pf Inj (Dilaudid Pf Inj) (04/24/17 22:15) Ondansetron Inj (Zofran Inj) (04/24/17 22:15) Labs Laboratory Tests Test 04/24/17 20:54 White Blood Count 12.8 TH/MM3 Red Blood Count 4.77 MIL/MM3 Hemoglobin 14.3 GM/DL Hematocrit 41.7 % Mean Corpuscular Volume 87.5 FL Mean Corpuscular Hemoglobin 30.0 PG Mean Corpuscular Hemoglobin 34.3 % Concent Red Cell Distribution Width 14.2 % Platelet Count 280 TH/MM3 Mean Platelet Volume 8.0 FL Neutrophils (%) (Auto) 61.4 % Lymphocytes (%) (Auto) 24.8 % Monocytes (%) (Auto) 11.7 % Eosinophils (%) (Auto) 1.8 % Basophils (%) (Auto) 0.3 % Neutrophils # (Auto) 7.9 TH/MM3 Lymphocytes # (Auto) 3.2 TH/MM3 Monocytes # (Auto) 1.5 TH/MM3 Eosinophils # (Auto) 0.2 TH/MM3 Basophils # (Auto) 0.0 TH/MM3 CBC Comment DIFF FINAL Differential Comment Sodium Level 141 MEQ/L Potassium Level 3.9 MEQ/L Chloride Level 103 MEQ/L Carbon Dioxide Level 29.5 MEQ/L Anion Gap 9 MEQ/L Blood Urea Nitrogen 10 MG/DL Creatinine 0.96 MG/DL Estimat Glomerular Filtration 88 ML/MIN Rate Random Glucose 108 MG/DL Calcium Level 8.6 MG/DL Magnesium Level 2.0 MG/DL Total Bilirubin 0.2 MG/DL Aspartate Amino Transf 22 U/L (AST/SGOT) Alanine Aminotransferase 47 U/L (ALT/SGPT) Alkaline Phosphatase 62 U/L Total Creatine Kinase 155 U/L Creatine Kinase MB 0.7 NG/ML Troponin I LESS THAN 0.02 NG/ML Total Protein 7.1 GM/DL Albumin 3.4 GM/DL [facility] Medical Decision Making Medical Screen Exam Complete: Yes Emergency Medical Condition: Yes Medical Record Reviewed: Yes Interpretation(s) The chest x-ray is normal except for a small amount of fluid tracking along the major fissures bilaterally. No infiltrates or observed. The CBC shows a white count of 12,800 but is otherwise unremarkable. The complete metabolic profile is normal and the troponin I is normal. Differential Diagnosis Chest wall pain, pneumothorax, pulmonary embolus, pneumonia, acute coronary syndromeunlikely, pleural fluid, hemothorax Narrative Course The patient has some pleural fluid that is likely irritating the pleura. He also appears to have chest wall pain. The chest wall pain appears to be the most significant cause of his pain. Plan: The patient will be given Symbicort, Motrin 800 mg 3 times daily and Percocet 10. Diagnosis Primary Impression: Chest wall pain following surgery Additional Instructions: The Percocet is one tablet every 4 hours as needed for pain. The Motrin is taken regularly, 1 tablet 3 times daily. Follow-up with Dr. Hanson or your primary care physician regarding this pain. Med/Other Pt SpecificInfo: Prescription(s) given Scripts Oxycodone-Acetaminophen (Percocet)10-325 mg Tab1 Tab PO Q4H PRN (PAIN) #30 TAB Ref 0 Prov:Garret Gorman MD 04/24/17 Ibuprofen 800 Mg Imb049 Mg PO TID #44 TAB Ref 0 Prov:Garret Gorman MD 04/24/17 Budesonide-Formoterol Inh (Symbicort Inh)160-4.5 Mcg/Act Aero2 Puff INH Q12HR # 1 INHALER Ref 0 Prov:Garret Gorman MD 04/24/17 Disposition: 01 DISCHARGE HOME Condition: Stable Garret Gorman MD April 24, 2017 20:56
[2017-04-24] MEDS ORDERED: SODIUM CHLORIDE 0.9% FLUSH 10 ML FLUSH IVF PRN (21:00)
--- NOTE | 2017-04-24 21:11 | RADRPT ---
EXAM DATE/TIME: 04/24/2017 21:10 [facility] COMPARISON: CHEST PA & LAT, April 20, 2017, 13:20. INDICATIONS : Chest pain post cervical spine surgery yesterday. MEDICAL HISTORY : None. SURGICAL HISTORY : Fusion, cervical. ENCOUNTER: Initial ACUITY: 1 day PAIN SCORE: 10/10 LOCATION: Center chest FINDINGS: AP and lateral view of the chest show linear density tracking along the major fissure on the left and right consistent with small amount of fluid. The lungs are clear without infiltrate. Heart is normal in size. Cervical spinal fusion plate noted. CONCLUSION: Small amount of fluid tracking along the major fissures bilaterally. No infiltrates observed. Neville Carcamo Jr., MD on April 24, 2017 at 21:09 Board Certified Radiologist. This report was verified electronically.
[2017-04-24 21:40] LABS: AUTOMATED NEUTROPHIL # 7.9 TH/MM3 (1.8-7.7); BASOPHIL % 0.3 % (0.0-2.0); EOSINOPHIL # 0.2 TH/MM3 (0-0.4); EOSINOPHIL % 1.8 % (0.0-4.0); HEMATOCRIT 41.7 % (39.0-51.0); HEMO FLAGS DIFF FINAL; LYMPH % 24.8 % (9.0-44.0); LYMPHOCYTE # 3.2 TH/MM3 (1.0-4.8); MEAN CELL VOLUME 87.5 FL (80.0-100.0); MEAN CORPUSCULAR HGB CONC 34.3 % (32.0-36.0); MONO % 11.7 % (0.0-8.0); NEUT % 61.4 % (16.0-70.0); PLATELET COUNT 280 TH/MM3 (150-450); RED BLOOD COUNT 4.77 MIL/MM3 (4.50-5.90); RED CELL DISTRIBUTION WIDTH 14.2 % (11.6-17.2); WHITE BLOOD COUNT 12.8 TH/MM3 (4.0-11.0)
[2017-04-24 22:05] LABS: ANION GAP 9 MEQ/L (5-15); AST (GOT) 22 U/L (15-37); BICARBONATE 29.5 MEQ/L (21.0-32.0); BLOOD UREA NITROGEN 10 MG/DL (7-18); CHLORIDE 103 MEQ/L (98-107); GLOMERULAR FILTRATION RATE 88 ML/MIN (>89); POTASSIUM 3.9 MEQ/L (3.5-5.1); SODIUM (NA) 141 MEQ/L (136-145)
[2017-04-24 22:10] LABS: ALKALINE PHOSPHATASE 62 U/L (45-117); ALT (GPT) 47 U/L (12-78); CREATINE KINASE 155 U/L (39-308); TOTAL BILIRUBIN ADULT 0.2 MG/DL (0.2-1.0)
[2017-04-24] MEDS ORDERED: ONDANSETRON HCL 4 MG/2 ML VIAL IV PUSH ONE ×2 (22:15→22:45)
[2017-04-24] MEDS ORDERED: HYDROmorphone HCL PF 1 MG/ML VIAL IV PUSH ONE ×2 (22:15→22:45)
[2017-04-24 22:23] LABS: CKMB 0.7 NG/ML (0.5-3.6)
[2017-04-24] MEDS ORDERED: PERC10TA27 PO (22:36)
[2017-04-24] MEDS ORDERED: IBUP800T23 PO (22:36)
[2017-04-24] MEDS ORDERED: SYMB160A INH (22:36)
[2017-04-24] MEDS ORDERED: IBUPROFEN 800 MG TAB PO ONE (22:45)
[2017-04-24] MEDS ORDERED: MAGICADU2 SWISH-SWAL (23:08)
--- NOTE | 2017-04-25 16:44 | EKG ---
Date Performed: 04/24/2017 Time Performed: 20:39:48 PTAGE: 37 years EKG: Sinus rhythm NONSPECIFIC T-WAVE ABNORMALITY SINCE PREVIOUS TRACING 03/28/2017, HEART RATE IS SLOWER, OTHERWISE NO SIGNIFICANT CHANGE. BORDERLINE ECG PREVIOUS TRACING 03/28/2017 @14.05.04 DOCTOR: Giles Murguia Interpretating Date/Time 04/25/2017 16:44:16
== END 2017-04-25 04:41 | disposition home or self-care (01) ==
LOC: NEPC 20:22
DX: R07.89 Other chest pain (principal); R94.31 Abnormal electrocardiogram [ECG] [EKG]
CPT/HCPCS: 71020; 80053; 82550; 82552; 83735; 84484; 85025; 93005; 96374; 96375; 99285; J1170; J2405

== ENCOUNTER 2017-07-03 18:48 | Emergency (ER) | payer OTHER ==
[~2017-07-03] VITALS: Ht 170.2 cm; Wt 120.0 kg
[~2017-07-03 18:48] MED LIST changes: +IBUP800T23 PO; +MAGICADU2 SWISH-SWAL; +PERC10TA27 PO
[2017-07-03 18:50] VITALS: BP 173/115; PULSE 84; RESP 20; TEMP 98.2; O2SAT 95
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
[2017-07-03] MEDS ORDERED: ONDANSETRON HCL 4 MG/2 ML VIAL IV PUSH ONE (21:15)
[2017-07-03] MEDS ORDERED: MORPHINE SULFATE 4 MG/ML INJ IV PUSH ONE (21:15)
[2017-07-03 21:30] VITALS: BP 178/99; PULSE 82; RESP 18; O2SAT 98
[2017-07-03 21:34] LABS: HEMATOCRIT 48.4 % (39.0-51.0); HEMO FLAGS DIFF FINAL; MEAN CELL VOLUME 89.2 FL (80.0-100.0); MEAN CORPUSCULAR HEMOGLOBIN 29.8 PG (27.0-34.0); MEAN CORPUSCULAR HGB CONC 33.4 % (32.0-36.0); PLATELET COUNT 335 TH/MM3 (150-450); RED BLOOD COUNT 5.42 MIL/MM3 (4.50-5.90); RED CELL DISTRIBUTION WIDTH 14.3 % (11.6-17.2)
[2017-07-03 21:35] LABS: AUTOMATED NEUTROPHIL # 9.6 TH/MM3 (1.8-7.7); BASOPHIL # 0.1 TH/MM3 (0-0.2); BASOPHIL % 0.7 % (0.0-2.0); EOSINOPHIL # 0.4 TH/MM3 (0-0.4); EOSINOPHIL % 2.9 % (0.0-4.0); LYMPHOCYTE # 3.8 TH/MM3 (1.0-4.8); MONO % 7.7 % (0.0-8.0); NEUT % 63.7 % (16.0-70.0)
[2017-07-03 21:42] LABS: BICARBONATE 26.3 MEQ/L (21.0-32.0); POTASSIUM 3.7 MEQ/L (3.5-5.1)
--- NOTE | 2017-07-03 22:08 | RADRPT ---
EXAM DATE/TIME: 07/03/2017 21:32 [facility] COMPARISON: No previous studies available for comparison. INDICATIONS : Left sided neck pain running down arm, with numb fingers. Post surgical fusion of C5/6/7 two months a go. MEDICAL HISTORY : None. SURGICAL HISTORY : Fusion, C5/6/7. ENCOUNTER: Initial ACUITY: 1 day PAIN SCORE: 8/10 LOCATION: Left neck. FINDINGS: Anterior cervical plate is present at C5-6-7. Orthotopic position to the interspace devices. There is straightening of the cervical lordosis. No evidence of compression deformity or spondylolisthesis . The atlantoaxial articulation is intact. Hardware appears intact. On the oblique views, the bony neural foramina are patent. CONCLUSION: ACF C5-7. No evidence of spondylolisthesis. Patent bony neural foramen. Neville Mi MD on July 03, 2017 at 22:05 Board Certified Radiologist. This report was verified electronically.
[2017-07-03] MEDS ORDERED: LORazepam 2 MG/ML VIAL IV PUSH ONE (22:15)
[2017-07-03 22:21] VITALS: BP 168/96; PULSE 80; RESP 18; O2SAT 96
[2017-07-03] MEDS ORDERED: GADODIAMIDE PF 287 MG/ML 20 ML VIAL (for RAD MRI) IV ONE (22:47)
[2017-07-03 23:12] VITALS: BP 166/92; PULSE 78; RESP 16; O2SAT 98
--- NOTE | 2017-07-03 23:26 | RADRPT ---
EXAM DATE/TIME: 07/03/2017 22:31 [facility] COMPARISON: No previous studies available for comparison. INDICATIONS : Radiculopathy. Left upper extremity numbness and tingling. Headache. CONTRAST: 20 cc Omniscan (gadodiamide) IV MEDICAL HISTORY : None. SURGICAL HISTORY : Fusion, cervical. Ankle. ENCOUNTER: Subsequent ACUITY: 1 day PAIN SCORE: 8/10 LOCATION: neck TECHNIQUE: Multiplanar, multisequence MRI examination of the cervical spine was performed. FINDINGS: Sagittal images demonstrate normal vertebral body alignment and curvature. No focal areas of marrow r eplacement are identified. The craniocervical junction appears normal. The cord itself is normal in c aliber and signal intensity. Axial images were performed from C2-3 through C7-T1. There is anterior c ervical fusion with a plate anteriorly from C5-C7. Following the administration of contrast no abnorm al enhancement is identified. C2-C3: No significant abnormalities identified. C3-C4: No significant abnormalities identified. C4-C5: No significant abnormalities identified. C5-C6: Postsurgical changes as above. There is no evidence of disc protrusion or spinal canal stenosis. C6-C7: Postsurgical changes as above. There is no evidence of disc protrusion or spinal canal stenosis. C7-T1: No significant abnormalities identified. CONCLUSION: 1. Postsurgical changes as above. No evidence of disc protrusion or spinal canal stenosis. Woodrow Groves MD on July 03, 2017 at 23:22 Board Certified Radiologist. This report was verified electronically.
[2017-07-03] MEDS ORDERED: META1TAB17 PO (23:48)
--- NOTE | 2017-07-03 23:49 | PD ---
Physical Exam Narrative GENERAL: Well-nourished, well-developed patient. SKIN: Warm and dry. HEAD: Normocephalic and atraumatic. EYES: No injection or drainage. ENT: No nasal drainage noted. NECK: Supple, trachea midline. CARDIOVASCULAR: Regular rate and rhythm RESPIRATORY: no increased effort. No accessory muscle use. NEUROLOGICAL: Awake and alert. Motor and sensory grossly within normal limits. Normal speech. Data Data Last Documented VS Vital Signs Date Time Temp Pulse Resp B/P Pulse Ox O2 Delivery O2 Flow Rate FiO2 07/03/17 23:12 78 16 166/92 98 07/03/17 18:50 98.2 Orders Complete Blood Count With Diff (07/03/17 21:02) Basic Metabolic Panel (Bmp) (07/03/17 21:02) Iv Access Insert/Monitor (07/03/17 21:02) Morphine Inj (Morphine Inj) (07/03/17 21:15) Ondansetron Inj (Zofran Inj) (07/03/17 21:15) Spine, Cervical Compl(Fou6irf) (07/03/17 ) Lorazepam Inj (Ativan Inj) (07/03/17 22:15) Mri C Spine W&W/O Contrast (07/03/17 ) Gadodiamide Pf Inj (Omniscan Pf Inj) (07/03/17 22:47) Labs Laboratory Tests Test 07/03/17 21:17 White Blood Count 15.0 TH/MM3 Red Blood Count 5.42 MIL/MM3 Hemoglobin 16.2 GM/DL Hematocrit 48.4 % Mean Corpuscular Volume 89.2 FL Mean Corpuscular Hemoglobin 29.8 PG Mean Corpuscular Hemoglobin 33.4 % Concent Red Cell Distribution Width 14.3 % Platelet Count 335 TH/MM3 Mean Platelet Volume 7.7 FL Neutrophils (%) (Auto) 63.7 % Lymphocytes (%) (Auto) 25.0 % Monocytes (%) (Auto) 7.7 % Eosinophils (%) (Auto) 2.9 % Basophils (%) (Auto) 0.7 % Neutrophils # (Auto) 9.6 TH/MM3 Lymphocytes # (Auto) 3.8 TH/MM3 Monocytes # (Auto) 1.2 TH/MM3 Eosinophils # (Auto) 0.4 TH/MM3 Basophils # (Auto) 0.1 TH/MM3 CBC Comment DIFF FINAL Differential Comment Sodium Level 137 MEQ/L Potassium Level 3.7 MEQ/L Chloride Level 103 MEQ/L Carbon Dioxide Level 26.3 MEQ/L Anion Gap 8 MEQ/L Blood Urea Nitrogen 13 MG/DL Creatinine 1.02 MG/DL Estimat Glomerular Filtration 82 ML/MIN Rate Random Glucose 81 MG/DL Calcium Level 8.8 MG/DL [facility] Supervised Visit with BETZY: Yes Interpretation(s) Last 24 hours Impressions Cervical Spine X-Ray 07/03/17 0000 Signed Impressions: Service Date/Time: Monday, July 03, 2017 21:32 - CONCLUSION: ACF C5-7. No evidence of spondylolisthesis. Patent bony neural foramen. Neville Mi MD Cervical Spine MRI 07/03/17 0000 Signed Impressions: Service Date/Time: Monday, July 03, 2017 22:31 - CONCLUSION: 1. Postsurgical changes as above. No evidence of disc protrusion or spinal canal stenosis. Woodrow Groves MD Narrative Course I, Dr. araujo, have reviewed the advance practice practitioner's documentation and am in agreement, met with the patient face to face, made the diagnosis, and the medical decision making was done by me. *My assessment and Findings: 37-year-old male presents with neck pain and tingling in his arm. He felt something pop. MRI was ordered after discussion with his orthopedic physician through the PA while I was with another patient. This resulted without emergent findings. Patient agrees to follow-up with his surgeon for further care Diagnosis Primary Impression: Neck pain Referrals: Jose Chung MD call for appointment Chad Chung MD call for appointment Patient Instructions: General Instructions Additional Instruction: return as needed, motrin and tylenol as needed Med/Other Pt SpecificInfo: Prescription(s) given Scripts Metaxalone 400 Mg [id number] Mg PO HS #15 TAB Prov:Ariadna Araujo MD 07/03/17 Disposition: 01 DISCHARGE HOME Condition: Stable Ariadna Araujo MD Jul 03, 2017 23:49
== END 2017-07-04 00:27 | disposition home or self-care (01) ==
LOC: NEPC 18:48
DX: M54.2 Cervicalgia (principal)
CPT/HCPCS: 72050; 72156; 80048; 85025; 96374; 96375; 99285; A9579; J2060; J2270; J2405

== ENCOUNTER 2017-07-09 22:51 | Emergency (ER) | payer BC, OTHER ==
[~2017-07-09 22:51] MED LIST changes: -IBUP800T23 PO; +META1TAB17 PO; -PERC10TA27 PO; -PROT40TA PO
[2017-07-09 22:53] VITALS: BP 177/107; PULSE 98; RESP 18; TEMP 98.6; O2SAT 98
[2017-07-10] VITALS: BP 143/83; PULSE 87; RESP 18; O2SAT 96
[2017-07-10] MEDS ORDERED: SODIUM CHLOR 0.9% 1000 ML INJ 1,000 ML IV ONE
[2017-07-10] MEDS ORDERED: SODIUM CHLORIDE 0.9% FLUSH 10 ML FLUSH IV FLUSH PRN
[2017-07-10] MEDS ORDERED: METOCLOPRAMIDE HCL 10 MG/2 ML VIAL IV PUSH ONE
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
[2017-07-10 00:18] VITALS: RESP 18; O2SAT 95
[2017-07-10 00:49] LABS: AUTOMATED NEUTROPHIL # 9.2 TH/MM3 (1.8-7.7); BASOPHIL # 0.1 TH/MM3 (0-0.2); BASOPHIL % 0.6 % (0.0-2.0); EOSINOPHIL # 0.4 TH/MM3 (0-0.4); EOSINOPHIL % 2.7 % (0.0-4.0); HEMATOCRIT 47.2 % (39.0-51.0); HEMO FLAGS DIFF FINAL; LYMPHOCYTE # 3.5 TH/MM3 (1.0-4.8); MEAN CELL VOLUME 88.4 FL (80.0-100.0); MEAN CORPUSCULAR HEMOGLOBIN 30.8 PG (27.0-34.0); MEAN CORPUSCULAR HGB CONC 34.9 % (32.0-36.0); NEUT % 62.7 % (16.0-70.0); PLATELET COUNT 278 TH/MM3 (150-450); RED BLOOD COUNT 5.34 MIL/MM3 (4.50-5.90); RED CELL DISTRIBUTION WIDTH 14.1 % (11.6-17.2); WHITE BLOOD COUNT 14.7 TH/MM3 (4.0-11.0)
[2017-07-10 00:53] LABS: APTT (PATIENT) 30.4 SEC (24.3-30.1); PROTHROMBIN TIME - PATIENT 10.7 SEC (9.8-11.6)
[2017-07-10 00:55] LABS: BICARBONATE 25.2 MEQ/L (21.0-32.0); POTASSIUM 4.4 MEQ/L (3.5-5.1)
[2017-07-10] MEDS ORDERED: CYCLOBENZAPRINE HCL 10 MG TAB PO ONE (01:15)
[2017-07-10] MEDS ORDERED: HYDROmorphone HCL PF 1 MG/ML VIAL IV PUSH ONE ×2 (01:15)
[2017-07-10] MEDS ORDERED: PERC10TA27 PO (01:37)
[2017-07-10] MEDS ORDERED: CYCL5TAB PO (01:37)
== END 2017-07-10 02:18 | disposition home or self-care (01) ==
LOC: NEPC 22:51
DX: M54.2 Cervicalgia (principal); M79.602 Pain in left arm; R20.0 Anesthesia of skin; Z72.0 Tobacco use; Z98.890 Other specified postprocedural states; Z87.19 Personal history of other diseases of the digestive system; Z87.39 Personal history of other diseases of the musculoskeletal system and connective tissue; Z87.09 Personal history of other diseases of the respiratory system
CPT/HCPCS: 80048; 85025; 85610; 85652; 85730; 86140; 96374; 96375; 96376; 99284; J1170; J2765; J7030

== ENCOUNTER 2017-12-07 17:40 | Emergency (ER) | payer OTHER ==
[~2017-12-07 17:40] MED LIST changes: +CYCL5TAB PO; +PERC10TA27 PO
[2017-12-07 17:43] VITALS: BP 179/98; PULSE 112; RESP 18; TEMP 97.9; O2SAT 98
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
--- NOTE | 2017-12-07 19:10 | RADRPT ---
EXAM DATE/TIME: 12/07/2017 18:49 [facility] COMPARISON: No previous studies available for comparison. INDICATIONS : Trauma. Fell down stairs 5 days ago. Low back pain. RADIATION DOSE: 35.86 CTDIvol (mGy) MEDICAL HISTORY : None SURGICAL HISTORY : Fusion, cervical. ENCOUNTER: Initial ACUITY: 4 - 6 days PAIN SCALE: 6/10 LOCATION: Lumbar spine. TECHNIQUE: Volumetric scanning of the lumbar spine was performed. Multiplanar reconstructions in the sagittal, coronal and oblique axial planes were performed. Using automated exposure control and adjustment of the mA and/or kV according to patient size, radiation dose was kept as low as reasonably achievable t o obtain optimal diagnostic quality images. DICOM format image data is available electronically for review and comparison. FINDINGS: VERTEBRAE: Normal vertebral body height. ALIGNMENT: No evidence of subluxation. T12-L1: The thecal sac has a normal diameter. No evidence of disc bulge or protrusion. The neural foramina are patent bilaterally. L1-L2: The thecal sac has a normal diameter. No evidence of disc bulge or protrusion. The neural foramina are patent bilaterally. L2-L3: The thecal sac has a normal diameter. No evidence of disc bulge or protrusion. The neural foramina are patent bilaterally. L3-L4: The thecal sac has a normal diameter. No evidence of disc bulge or protrusion. The neural foramina are patent bilaterally. L4-L5: The thecal sac has a normal diameter. No evidence of disc bulge or protrusion. The neural foramina are patent bilaterally. L5-S1: The thecal sac has a normal diameter. No evidence of disc bulge or protrusion. The neural foramina are patent bilaterally. CONCLUSION: Normal examination. Limbus vertebra of L4 and L5. Jose Mann MD on December 07, 2017 at 19:06 Board Certified Radiologist. This report was verified electronically.
[2017-12-08] MEDS ORDERED: ACETAMINOPHEN/HYDROcodone 325 MG/5 MG TAB PO ONE (00:15)
[2017-12-08] MEDS ORDERED: ROBA750T PO (00:16)
[2017-12-08] MEDS ORDERED: NORC5TAB PO (00:16)
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
[2017-12-08 00:32] VITALS: BP 167/71; PULSE 102; RESP 18; O2SAT 100
== END 2017-12-08 00:32 | disposition home or self-care (01) ==
LOC: NEPD 17:40
DX: S16.1XXA Strain of muscle, fascia and tendon at neck level, initial encounter (principal); R51 Headache; J45.909 Unspecified asthma, uncomplicated; K21.9 Gastro-esophageal reflux disease without esophagitis; G47.30 Sleep apnea, unspecified; F17.210 Nicotine dependence, cigarettes, uncomplicated; W01.0XXA Fall on same level from slipping, tripping and stumbling without subsequent striking against object, initial encounter; Y99.0 Civilian activity done for income or pay; Z87.19 Personal history of other diseases of the digestive system
CPT/HCPCS: 70450; 72125; 72131; 99284

== ENCOUNTER → 2018-05-17 | Outpatient (CLI) | payer OTHER ==
[~2018-05-17] MED LIST changes: +NORC5TAB PO; +ROBA750T PO
[2018-05-17 10:18] LABS: AUTOMATED NEUTROPHIL # 5.1 TH/MM3 (1.8-7.7); BASOPHIL # 0.1 TH/MM3 (0-0.2); BASOPHIL % 0.8 % (0.0-2.0); EOSINOPHIL # 0.4 TH/MM3 (0-0.4); EOSINOPHIL % 4.3 % (0.0-4.0); HEMATOCRIT 43.9 % (39.0-51.0); HEMOGLOBIN 14.9 GM/DL (13.0-17.0); LYMPH % 26.4 % (9.0-44.0); LYMPHOCYTE # 2.3 TH/MM3 (1.0-4.8); MEAN CELL VOLUME 88.1 FL (80.0-100.0); MEAN CORPUSCULAR HEMOGLOBIN 29.9 PG (27.0-34.0); MEAN CORPUSCULAR HGB CONC 33.9 % (32.0-36.0); MEAN PLATELET VOLUME 7.7 FL (7.0-11.0); MONOCYTE # 0.9 TH/MM3 (0-0.9); NEUT % 58.5 % (16.0-70.0); PLATELET COUNT 284 TH/MM3 (150-450); RED BLOOD COUNT 4.99 MIL/MM3 (4.50-5.90); RED CELL DISTRIBUTION WIDTH 14.2 % (11.6-17.2); WHITE BLOOD COUNT 8.7 TH/MM3 (4.0-11.0)
[2018-05-17 10:45] LABS: BICARBONATE 27.5 MEQ/L (21.0-32.0); CALCIUM 8.2 MG/DL (8.5-10.1); CREATININE 1.02 MG/DL (0.60-1.30)
--- NOTE | 2018-05-17 22:54 | EKG ---
Date Performed: 05/17/2018 Time Performed: 09:36:26 PTAGE: 38 years EKG: Sinus rhythm NORMAL ECG PREVIOUS TRACING : 04/24/2017 20.39 DOCTOR: Rangel Nicholas Interpretating Date/Time 05/17/2018 22:51:32
== END ==
LOC: HCAV 09:27
PROVIDERS: ATTEND Orthopaedic Surgery Orthopaedic Surgery of the Spine
DX: Z01.810 Encounter for preprocedural cardiovascular examination (principal); G56.00 Carpal tunnel syndrome, unspecified upper limb
CPT/HCPCS: 36415; 80048; 85025; 93005